=== PATIENT | female | born 1970 | race Caucasian/White ===

== ENCOUNTER 2020-02-16 14:26 | Outpatient (REF) | payer BC, SELFPAY ==
--- NOTE | 2020-02-16 | MM_ITS ---
EXAMINATION: MM SCREENING DIGITAL BREAST TOMOSYNTHESIS, BILATERAL CLINICAL INFORMATION: Screening. Asymptomatic. Family history breast cancer maternal aunt. Personal history reduction mammoplasty 1985. The lifetime risk of breast cancer based on the Tyrer-Cuzick Model is 11%. COMPARISON: Mammography: 02/08/2019, 01/25/2018, 07/06/2014 TECHNIQUE: Digital breast tomosynthesis is performed in both the craniocaudal and mediolateral oblique views along with computer-aided detection (CAD). Synthesized 2D images are generated from the tomosynthesis. FINDINGS: There are scattered areas of fibroglandular density (ACR BI-RADS breast composition Category b). There is minor scarring and numerous benign round and rim calcifications predominantly anterior breast consistent with the prior reduction mammoplasty. Intramammary node mid 9:00 right breast is stable from prior exams. There is no developing density or interval mass or architectural abnormality. No significant changes. MM/MM tomosynthesis screening BI IMPRESSION: No significant changes from prior studies. ASSESSMENT: BI-RADS 2: Benign RECOMMENDATION: Routine annual mammography screening. This patient's information was entered into a reminder system with a target due date for their next mammogram.
== END 2020-02-16 14:27 | disposition home or self-care (01) ==
LOC: HO.MAMMO 14:26
PROVIDERS: PCP Internal Medicine; Visit Provider Internal Medicine
DX: Z12.31 Encounter for screening mammogram for malignant neoplasm of breast (principal)
CPT/HCPCS: 77063; 77067

== ENCOUNTER → 2020-06-10 14:41 | Outpatient (BNVA) | payer BC, SELFPAY | PROVIDERS: PCP Internal Medicine; Visit Provider Internal Medicine Cardiovascular Disease | DX: I49.1 Atrial premature depolarization (principal); E78.5 Hyperlipidemia, unspecified | CPT/HCPCS: 93005 ==

== ENCOUNTER 2020-07-13 15:09 | Emergency (ER) | payer BC, SELFPAY ==
[2020-07-13 15:27] VITALS: PULSE 69; RESP 16; TEMP 36.7; O2SAT 98; BMI 28.1
[2020-07-13 16:50] LABS: MANUAL DIFF FLAG NO
[2020-07-13 16:53] LABS: Basophils Absolute Auto 0.1 X10*3/uL (0.0-0.2); Basophils Percent Auto 0.6 % (0-2); Eosinophils Absolute Auto 0.5 X10*3/uL (0.0-0.4); Eosinophils Percent Auto 4.1 % (0-4); Imm Gran Abs Auto 0.05 X10*3/uL (0.00-0.03); Imm Gran Pct Auto 0.4 % (0.0-0.4); Lymphocytes Absolute Auto 3.2 X10*3/uL (1.2-4.9); Lymphocytes Percent Auto 24.8 % (20-40); Mean Corpuscular HGB Conc 34.1 g/dl (31.0-35.0); Mean Corpuscular Hemoglobin 29.1 pg (27.0-33.0); Mean Corpuscular Volume 85.4 fL (80-98); Mean Platelet Volume 10.7 fL (9.4-12.3); Monocytes Absolute Auto 0.9 X10*3/uL (0.1-1.2); Monocytes Percent Auto 7.1 % (2-11); Platelet Count 298 X10*3/uL (160-400); Red Blood Count 5.15 X10*6/uL (4.20-5.50); Red Cell Distribution Width 12.3 % (11.0-16.0); White Blood Count 12.7 X10*3/uL (4.8-10.8)
[2020-07-13 16:59] LABS: Glucose Urine UA 500 MG/DL (NEG); Leukocyte Esterase Urine NEG (NEG); Nitrite Urine NEG (NEG); Specific Gravity - Urine <= 1.005 (1.005-1.025); Urine Blood NEG (NEG); Urine Ketones NEG (NEG); Urine Protein NEG (NEG-TRACE)
[2020-07-13 17:00] LABS: Appearance Urine CLEAR; Color Urine COLORLESS
[2020-07-13 17:25] LABS: Alanine Aminotransferase 13 U/L (0-31); Albumin Level 4.7 g/dL (3.5-5.0); Alkaline Phosphatase 91 U/L (39-117); Anion Gap 16 (12-20); Aspartate Amino Transferase 12 U/L (5-31); Bilirubin Total 0.3 mg/dL (0.0-1.0); Blood Urea Nitrogen 10 mg/dL (9-16); Calcium 9.6 mg/dL (8.4-10.2); Carbon Dioxide 20 mmol/L (22-29); Chloride 105 mmol/L (96-108); Creatinine Clr Calc Pharmacy 64.3; Estimated Glomerular Filt Rate > 60; Glucose Random 236 mg/dL (60-115); Potassium 4.2 mmol/L (3.3-5.1); Sodium 137 mmol/L (135-145); Total Protein 7.6 g/dL (6.5-8.0)
--- NOTE | 2020-07-13 21:06 | ECG_ITS ---
Test Reason : CHEST PAIN Blood Pressure : / mmHG Vent. Rate : 058 BPM Atrial Rate : 058 BPM P-R Int : 100 ms QRS Dur : 080 ms QT Int : 396 ms P-R-T Axes : 000 050 048 degrees QTc Int : 388 ms Sinus bradycardia with short CO Low voltage QRS Borderline ECG When compared to the previous EKG of No significant changes seen Referred By: Priyanka Fermin Electronically Signed By:TANYA REYNA MD
--- NOTE | 2020-07-13 21:07 | ED_ITS ---
HPI - General Adult General Chief complaint: General Medical Stated complaint: Black stools Time Seen by Provider: 07/13/20 18:40 History of Present Illness HPI narrative: 49-year-old with a history of diabetes, history of smoking presents today with having pain in the epigastric area the pain is dull in nature. Patient took some Motrin for the pain. It subsequently made the pain worse. Patient today took some Pepto-Bismol. Noted her stools to be black. Came to the emergency department. She denies any chest pain any shortness of breath. No fever no chills. No coughing or congestion or upper respiratory symptoms. Patient is from home. No history of GI bleeds in the past. Patient is not on any blood thinners. Related Data Home Medications Medication Instructions Recorded Confirmed atorvastatin 40 mg tablet 40 mg PO DAILY 06/10/20 06/10/20 empagliflozin 25 mg tablet 25 mg PO DAILY 06/10/20 06/10/20 metformin 500 mg tablet mg PO 06/10/20 06/10/20 metoprolol succinate 50 mg 50 mg PO DAILY 06/10/20 06/10/20 tablet,extended release 24 hr Previous Rx's Medication Instructions Recorded omeprazole magnesium [Prilosec OTC] 20 mg PO DAILY #14 tab 07/13/20 Allergies Allergy/AdvReac Type Severity Reaction Status Date / Time egg [EGG] Allergy Unknown GI UPSET Unverified 12/25/19 15:43 tramadol [Ultram] AdvReac Unknown GI upset Verified 07/18/19 00:00 ivory soap Allergy Unknown rash Uncoded 06/10/19 00:00 Review of Systems Review of Systems: Constitutional: No Weight loss, No Fever, No Chills, No Night Sweats, No Fatigue, No Malaise ENT/Mouth: No Hearing loss, No Ear Pain, No Nasal Congestion, No Sinus Pain, No Hoarseness, No sore throat, No Rhinorrhea, No Swallowing Difficulty Eyes: No Eye Pain, No Swelling, No Redness, No Foreign Body, No Discharge, No Vision Changes Cardiovascular: No Chest Pain, No SOB, No Dyspnea on Exertion, No Orthopnea, No Edema, No Palpitations Respiratory: No Cough, No Sputum, No Wheezing, No Smoke Exposure, No Dyspnea Gastrointestinal: No Nausea, No Vomiting, No Diarrhea, No Constipation, No abdominal Pain, No Hematochezia, No Melena Genitourinary: no irregular bleeding, No Dysuria, No Urinary Frequency, No Hematuria, No Urinary Incontinence, No Urgency, No Flank Pain, No Urinary Flow Changes, No Hesitancy Musculoskeletal: No joint pain, No Myalgias, No Joint Swelling Skin: No Skin Lesions, No rash Neuro: No Weakness, No Numbness, No Paresthesias, No Loss of Consciousness, No Dizziness, No Headache Psych: No Anxiety/Panic, No Depression, No SI/HI/AH/VH, No Social Issues, Heme/Lymph: No Bruising, No Bleeding,No Lymphadenopathy Endocrine: No Polyuria, No Polydipsia, No Temperature Intolerance [facility] Past Medical History Medical History Hyperlipidemia Premature atrial contractions Supraventricular tachycardia Surgical History History of cardiac radiofrequency ablation (RFA) Hx of cardiac cath Family History Family History Father Diabetes CVD (cardiovascular disease) Mother CVD (cardiovascular disease) Cancer Social History Social History Smoking Status: Current every day smoker Advance Directives: No Advance Directives Information Provided: Yes Physical Exam Vital Signs: Vital Signs: Last Vital Signs Temp 98.8 F 07/13/20 21:33 Pulse 68 07/13/20 21:33 Resp 16 07/13/20 21:33 BP 153/77 H 07/13/20 21:33 Pulse Ox 99 07/13/20 21:33 Body Mass Index 28.1 Appearance: Alert. Oriented X3. No acute distress. Eyes: Pupils equal, round and reactive to light. ENT: Pharynx normal. Neck: Normal inspection. Neck supple. No lymph nodes noted. No crepitus CVS: Normal heart rate and rhythm. Pulses normal. Normal S1 and S2 Respiratory: No respiratory distress. Breath sounds normal. No Wheezing. No rales Abdomen: Soft and nontender. No rigidity. No distention. good BS x4 Skin: Skin warm and dry. Normal skin color. Normal skin turgor. Extremities: No lower extremity edema. Neurovascular intact to all extremities. No Lacerations. No Rash Neuro: Oriented X 3. No motor deficit. No sensory deficit. Moving all extermities. No slurred speech Medical Decision Making MDM Narrative Medical decision making narrative: Patient's hemoglobin is 15. Well appearing. The black stools likely related to patient's use of Pepto-Bismol as patient's stool came back heme negative. Will discharge patient home. Will start patient on PPI for epigastric pain. Incidentally patient while in the emergency department was able to tolerate a bag of Doritos with any difficulties. Her repeat exam is soft nontender. In stable condition with discharge home Lab Data Result diagrams: 07/13/20 16:39 07/13/20 16:39 Labs: Lab Results 07/13/20 07/13/20 07/13/20 Range/Units 16:39 16:39 16:39 WBC 12.7 H (4.8-10.8) X10*3/uL RBC 5.15 (4.20-5.50) X10*6/uL Hgb 15.0 (12.0-16.0) g/dl Hct 44.0 (37-47) % MCV 85.4 (80-98) fL MCH 29.1 (27.0-33.0) pg MCHC 34.1 (31.0-35.0) g/dl RDW 12.3 (11.0-16.0) % Plt Count 298 (160-400) X10*3/uL MPV 10.7 (9.4-12.3) fL Immature Gran % (Auto) 0.4 (0.0-0.4) % Neut % (Auto) 63.0 (45-73) % Lymph % (Auto) 24.8 (20-40) % [place] % (Auto) 7.1 (2-11) % Eos % (Auto) 4.1 H (0-4) % Baso % (Auto) 0.6 (0-2) % Lymph # (Auto) 3.2 (1.2-4.9) X10*3/uL [place] # (Auto) 0.9 (0.1-1.2) X10*3/uL Eos # (Auto) 0.5 H (0.0-0.4) X10*3/uL Baso # (Auto) 0.1 (0.0-0.2) X10*3/uL Abs Immat Gran (auto) 0.05 H (0.00-0.03) X10*3/uL Absolute Neuts (auto) 8.0 (2.0-8.3) X10*3/uL Absolute Nucleated RBC 0.000 (0.0-0.012) X10*3/uL Nucleated RBC % (auto) 0.0 (0.0-0.2) /100WBC Hold Blue Top SEE NOTE Sodium 137 (135-145) mmol/L Potassium 4.2 (3.3-5.1) mmol/L Chloride 105 (96-108) mmol/L Carbon Dioxide 20 L (22-29) mmol/L Anion Gap 16 (12-20) BUN 10 (9-16) mg/dL Creatinine 0.91 (0.5-1.4) mg/dL Estim Creat Clear Calc 64.3 Estimated GFR > 60 Random Glucose 236 H (60-115) mg/dL Calcium 9.6 (8.4-10.2) mg/dL Total Bilirubin 0.3 (0.0-1.0) mg/dL AST 12 (5-31) U/L ALT 13 (0-31) U/L Alkaline Phosphatase 91 (39-117) U/L Total Protein 7.6 (6.5-8.0) g/dL Albumin 4.7 (3.5-5.0) g/dL Urine Color Urine Appearance Urine pH (5.0-8.0) Ur Specific [place] (1.005-1.025) Urine Protein (NEG-TRACE) MG/DL Urine Glucose (UA) (NEG) MG/DL Urine Ketones (NEG) MG/DL Urine Blood (NEG) Urine Nitrite (NEG) Ur Leukocyte Esterase (NEG) Stool Occult Blood (NEGATIVE) 07/13/20 07/13/20 Range/Units 16:50 21:02 WBC (4.8-10.8) X10*3/uL RBC (4.20-5.50) X10*6/uL Hgb (12.0-16.0) g/dl Hct (37-47) % MCV (80-98) fL MCH (27.0-33.0) pg MCHC (31.0-35.0) g/dl RDW (11.0-16.0) % Plt Count (160-400) X10*3/uL MPV (9.4-12.3) fL Immature Gran % (Auto) (0.0-0.4) % Neut % (Auto) (45-73) % Lymph % (Auto) (20-40) % [place] % (Auto) (2-11) % Eos % (Auto) (0-4) % Baso % (Auto) (0-2) % Lymph # (Auto) (1.2-4.9) X10*3/uL [place] # (Auto) (0.1-1.2) X10*3/uL Eos # (Auto) (0.0-0.4) X10*3/uL Baso # (Auto) (0.0-0.2) X10*3/uL Abs Immat Gran (auto) (0.00-0.03) X10*3/uL Absolute Neuts (auto) (2.0-8.3) X10*3/uL Absolute Nucleated RBC (0.0-0.012) X10*3/uL Nucleated RBC % (auto) (0.0-0.2) /100WBC Hold Blue Top Sodium (135-145) mmol/L Potassium (3.3-5.1) mmol/L Chloride (96-108) mmol/L Carbon Dioxide (22-29) mmol/L Anion Gap (12-20) BUN (9-16) mg/dL Creatinine (0.5-1.4) mg/dL Estim Creat Clear Calc Estimated GFR Random Glucose (60-115) mg/dL Calcium (8.4-10.2) mg/dL Total Bilirubin (0.0-1.0) mg/dL AST (5-31) U/L ALT (0-31) U/L Alkaline Phosphatase (39-117) U/L Total Protein (6.5-8.0) g/dL Albumin (3.5-5.0) g/dL Urine Color COLORLESS Urine Appearance CLEAR Urine pH 6.0 (5.0-8.0) Ur Specific [place] <= 1.005 (1.005-1.025) Urine Protein NEG (NEG-TRACE) MG/DL Urine Glucose (UA) 500 H (NEG) MG/DL Urine Ketones NEG (NEG) MG/DL Urine Blood NEG (NEG) Urine Nitrite NEG (NEG) Ur Leukocyte Esterase NEG (NEG) Stool Occult Blood NEGATIVE (NEGATIVE) ECG Data Interpretation: Sinus heart rate is 60 NE QRS QT within normal limits is no acute ST segment elevation Discharge Plan Discharge Clinical Impression: Gastritis Patient Disposition: Home, Self-Care Instructions: Gastritis (ED) Prescriptions: New omeprazole magnesium [Prilosec OTC] 20 mg tablet,delayed release (DR/EC) 20 mg PO DAILY Qty: 14 RF: 0 No Action metformin 500 mg tablet PO RF: 0 metoprolol succinate 50 mg tablet extended release 24 hr 50 mg PO DAILY RF: 0 Jardiance 25 mg tablet 25 mg PO DAILY RF: 0 atorvastatin 40 mg tablet 40 mg PO DAILY RF: 0 Referrals: Hailey Bermeo MD [Primary Care Provider] - 2 days
[2020-07-13 21:08] LABS: OBS Int Ctl Valid YES; OBS1 NEGATIVE (NEGATIVE)
[2020-07-13 21:33] VITALS: BP 153/77; PULSE 68; RESP 16; TEMP 37.1; O2SAT 99
[2020-07-13] MEDS: Magnesium Hydrox/Alum Hydrox 30 ML ORAL.SUSP PO (21:36)
[2020-07-13 21:51] LABS: Lipase 16 U/L (8-78)
== END 2020-07-13 22:15 | disposition home or self-care (01) ==
PROVIDERS: Emergency Provider Emergency Medicine Emergency Medical Services; PCP Internal Medicine
DX: K29.70 Gastritis, unspecified, without bleeding (principal); R10.13 Epigastric pain; E11.9 Type 2 diabetes mellitus without complications; E78.5 Hyperlipidemia, unspecified; F17.200 Nicotine dependence, unspecified, uncomplicated; Z79.84 Long term (current) use of oral hypoglycemic drugs; Z79.02 Long term (current) use of antithrombotics/antiplatelets
CPT/HCPCS: 36415; 80053; 81003; 82272; 83690; 85025; 93005; 99283; 99284

== ENCOUNTER 2020-07-19 07:23 | Outpatient (REF) | payer BC, SELFPAY ==
[2020-07-19 11:16] LABS: MANUAL DIFF FLAG NO
[2020-07-19 11:45] LABS: Basophils Absolute Auto 0.1 X10*3/uL (0.0-0.2); Basophils Percent Auto 0.5 % (0-2); Eosinophils Absolute Auto 0.4 X10*3/uL (0.0-0.4); Eosinophils Percent Auto 3.8 % (0-4); Hematocrit 44.5 % (37-47); Hemoglobin 15.1 g/dl (12.0-16.0); Imm Gran Abs Auto 0.04 X10*3/uL (0.00-0.03); Imm Gran Pct Auto 0.4 % (0.0-0.4); Lymphocytes Absolute Auto 2.9 X10*3/uL (1.2-4.9); Lymphocytes Percent Auto 26.3 % (20-40); Mean Corpuscular HGB Conc 33.9 g/dl (31.0-35.0); Mean Corpuscular Hemoglobin 28.9 pg (27.0-33.0); Mean Corpuscular Volume 85.2 fL (80-98); Mean Platelet Volume 11.8 fL (9.4-12.3); Monocytes Absolute Auto 0.7 X10*3/uL (0.1-1.2); Monocytes Percent Auto 6.3 % (2-11); Neutrophils Absolute Auto 6.9 X10*3/uL (2.0-8.3); Neutrophils Percent Auto 62.7 % (45-73); Platelet Count 293 X10*3/uL (160-400); Red Blood Count 5.22 X10*6/uL (4.20-5.50); Red Cell Distribution Width 12.3 % (11.0-16.0)
== END 2020-07-19 07:24 | disposition home or self-care (01) ==
LOC: HO.HMGCLDS 07:23
PROVIDERS: PCP Nurse Practitioner Family; Visit Provider Nurse Practitioner Family
DX: K29.70 Gastritis, unspecified, without bleeding (principal)
CPT/HCPCS: 36415; 85025

== ENCOUNTER 2020-08-04 09:27 | Outpatient (REF) | payer BC, SELFPAY ==
--- NOTE | ~2020-08-04 | US_ITS ---
EXAMINATION: US ABDOMEN COMPLETE CLINICAL INFORMATION: Left upper quadrant pain. COMPARISON: None TECHNIQUE: Real-time imaging of the abdominal viscera. FINDINGS: PANCREAS: The head and body the pancreas are normal. The tail is not well visualized due to bowel gas. ABDOMINAL AORTA: The proximal and distal abdominal aorta are normal in caliber. The midabdominal aorta is not well visualized due to bowel gas. INFERIOR VENA CAVA: Visualized portions are normal. LIVER: Normal. The liver is normal in size. The liver contour is normal. Parenchymal echogenicity is normal. No focal hepatic lesion. There is no intrahepatic biliary duct dilatation seen. GALLBLADDER: Surgically absent. COMMON BILE DUCT: Normal in caliber measuring 0.5 cm in diameter. RIGHT KIDNEY: Normal. No hydronephrosis. No renal calculi or focal parenchymal lesions. The kidney measures 11.5 cm in maximum dimension. LEFT KIDNEY: There is mild fullness of the left renal pelvis versus extrarenal pelvis. No hydronephrosis is seen. No renal calculi or focal parenchymal lesions. The kidney measures 12.4 cm in maximum dimension. SPLEEN: Normal. The spleen measures 11.2 cm in maximum dimension. FREE FLUID: None. US/US abdomen complete IMPRESSION: Limited visualization of the tail the pancreas and mid abdominal aorta. Mild fullness of the left renal pelvis versus extrarenal pelvis.
== END 2020-08-04 09:28 | disposition home or self-care (01) ==
LOC: HO.HMGCX 09:27
PROVIDERS: PCP Nurse Practitioner Family; Visit Provider Nurse Practitioner Family
DX: R10.12 Left upper quadrant pain (principal)
CPT/HCPCS: 76700

== ENCOUNTER → 2020-08-27 14:31 | Outpatient (BNVA) | payer BC, SELFPAY | PROVIDERS: PCP Nurse Practitioner Family; Visit Provider Nurse Practitioner ==

== ENCOUNTER 2020-10-01 10:24 | Day surgery (SDC) | payer BC, SELFPAY ==
[2020-09-27 09:17] VITALS: BMI 29.0
[2020-10-01 10:55] VITALS: BP 153/78; PULSE 84; RESP 18; TEMP 37
[2020-10-01 11:06] LABS: Glucose, Whole Blood 161 mg/dL (60-115)
--- NOTE | 2020-10-01 11:28 | P.CONAN_ITS ---
[facility] Active Problems Active Problems: All Active Problems (Updated 09/27/20 @ 09:19 by Gayatri alvarado) Family history of stomach cancer (Acute) Gastritis (Acute) LUQ abdominal pain (Acute) Colon cancer screening (Acute) Dysphagia (Acute) FHx: esophageal cancer (Acute) Hyperlipidemia (Acute) Premature atrial contractions (Acute) Past Medical History Medical History Diabetes Hyperlipidemia Premature atrial contractions Supraventricular tachycardia Family History Family History Father Diabetes CVD (cardiovascular disease) Mother CVD (cardiovascular disease) Cancer Surgical History Surgical History History of cardiac radiofrequency ablation (RFA) Hx of cardiac cath Social History Social History Patient Tobacco Use Status: Current everyday Tobacco user Tobacco use type: Cigarette Use of substances other than those prescribed or required for medical reasons: No Are you DNR?: No Advance Directives: No Advance Directives Information Provided: Yes Meds Allergies Allergy/AdvReac Type Severity Reaction Status Date / Time dulaglutide [From Trulicity] AdvReac Intermediate abdominal Verified 10/01/20 10:53 pain egg [EGG] AdvReac Intermediate GI UPSET Verified 10/01/20 10:53 tramadol [Ultram] AdvReac Intermediate GI upset Verified 10/01/20 10:53 ivory soap Allergy Intermediate rash Uncoded 09/27/20 09:21 Home Medications Medication Instructions Recorded Confirmed Last Taken Type empagliflozin 25 mg tablet 25 mg PO DAILY 06/10/20 09/27/20 Unknown History metoprolol succinate 50 mg 50 mg PO DAILY 06/10/20 09/27/20 10/01/20 09:45 History tablet,extended release 24 hr metformin 500 mg tablet 1,000 mg PO BID tab 07/15/20 09/27/20 Unknown History Exam Exam Date and Time: October 01, 2020 1128 Height,Weight and Vital Signs: Height 5 ft 1 in Weight 69.853 kg Last Vital Signs Temp 98.6 F 10/01/20 10:55 Pulse 84 10/01/20 10:55 Resp 18 10/01/20 10:55 BP 153/78 H 10/01/20 10:55 Pertinent Lab Results Pertinent Lab Results: Laboratory Tests 10/01/20 11:02 POC Glucose 161 H Airway Mallampati Class: II TM Dist: >3cm Neck ROM: Full Denture: Upper and Lower
[2020-10-01] MEDS: Lactated Ringers 1,000 ML 100 ML IVCONT (11:37)
--- NOTE | 2020-10-01 11:45 | W.PM.OPN ---
Operative Note Operative Note Date of Service: 10/01/20 Narrative: Pre-op diagnosis: Colon cancer screening, early satiety, dysphagia to pills Post-op diagnosis: other (Gastritis, dysphagia, diverticulosis) Procedure: FLEXIBLE TRANSORAL UPPER GASTROINTESTINAL ENDOSCOPY WITH BIOPSIES AND COLONOSCOPY TILL CECUM WITH RANDOM COLON BIOPSIES UPPER ENDOSCOPY Consent: Indications for the procedure and potential complications of bleeding, perforation, reaction to medications and missed diagnosis were discussed with the patient and informed consent was obtained. Instrument: Olympus GIF H 190 mid size upper endoscope Monitoring: Vital signs and clinical assessment, continuous EKG monitoring, Pulse oximetry, Carbon Dioxide monitoring and blood pressure monitoring were done throughout the procedure. Procedure: The patient was placed in the left lateral decubitis position and pre-procedure medications were administered and a bite block was placed. The endoscope was inserted into the mouth and advanced under direct vision to the third part of duodenum. A careful inspection was made as the upper endoscope was withdrawn including a retroflexed examination of the proximal stomach; Findings and interventions are described below. Findings: Larynx: Normal Esophagus: Tortuous esophagus with increased tertiary contractions without stricture or ring - biopsies were obtained from proximal esophagus to check for EOE. GE junction at 35 cms.. No esophagitis or Olivia's. Stomach: Moderate diffuse gastric erythema with superficial erosions with small amounts of heme in the antrum. Biopsies were obtained from the gastric body and antrum. Grade 2 flap valve on retroflexed examination of the cardia. Duodenum: Normal bulb and descending duodenum. Biopsies were obtained from 3rd part of the duodenum to check for celiac sprue. Intervention: Biopsies as noted above COLONOSCOPY PROCEDURE NOTE Consent: Indications for the procedure and potential complications of bleeding, perforation, reaction to medications and missed diagnosis were discussed with the patient and informed consent was obtained. Instrument: Olympus PCF H 190 L variable stiffness pediatric colonoscope Monitoring: Vital signs and clinical assessment, intermittent blood pressure monitoring, continuous EKG monitoring, Pulse oximetry and Carbon Dioxide monitoring were done throughout the procedure. Colon withdrawl time was 17 minutes. Procedure: The patient was placed in the left lateral decubitis position and pre-procedure medications were administered. After a digital rectal examination of the ano-rectum, the video colonoscope was inserted into the rectum and advanced through the colon to the cecum. The colonoscope was slowly withdrawn in a retrograde panoramic fashion and the colon mucosa was carefully examined including a retroflexed view of the rectum. Findings and interventions are described below. Procedure Difficulty: : Without difficulty Findings: Terminal Ileum: Not evaluated Cecum: Normal Ascending Colon: Moderate diverticulosis Transverse Colon: Moderate diverticulosis Descending Colon: Moderate diverticulosis Sigmoid Colon: Moderate diverticulosis Rectum: Normal Ano-rectum: Hypertrophied anal papillae Colon preparation: Good Impression and Post Procedure Diagnosis: Endoscopy Findings: ESOPHAGUS: Tortuous esophagus with increased tertiary contractions without stricture or ring - biopsies were obtained from proximal esophagus to check for EOE. GE junction at 35 cms.. No esophagitis or Olivia's. STOMACH: Moderate diffuse gastric erythema with superficial erosions with small amounts of heme in the antrum. Biopsies were obtained from the gastric body and antrum. Grade 2 flap valve on retroflexed examination of the cardia. DUODENUM: Normal - biopsied to check for celiac sprue Colonoscopy Findings: No polyps were detected. Random biopsies were obtained from the colon to check for microscopic colitis Moderate diverticulosis seen in the entire colon Plan: Await pathology results Patient has an appointment on 10/14/20 in the GI Clinic with Elinor Cr NP. Repeat Colonoscopy in 10 years if colon biopsies are normal. Above findings were reviewed with the patient and Gastritis and diverticulosis handouts were given in the discharge area Surgeon: Amauri Danielle MD Anesthesia: MAC (Elodia Walker CRNA) Was an Electric Stove Mechanic used for this Procedure?: Yes Electric Stove Mechanic: Hoa Alcaraz Estimated blood loss (mL): 0 Pathology: other ( A- SMALL BOWEL BIOPSIES B- GASTRIC ANTRUM - R/O H.PYLORI C- GASTRIC BODY D- PROXIMAL ESOPHAGUS R/O EOE E- RANDOM COLON BIOPSIES) Condition: stable Disposition: PACU
--- NOTE | 2020-10-01 11:45 | MHC.SHP ---
Pre-Procedural Eval Section A Date of Service: 10/01/20 The patient is an INPATIENT: No The History & Physical has been completed within 30 days and I have reviewed it.: No Section B Chief Complaint: Screening, Dysphagia Details of Present Illness: Colon cancer screening, dysphagia, early satiety Relevant Family History (Specify if Yes): Yes Present Medications: see Short Stay Collaborative assessment Medical History: Significant History (Hyperlipidemia Premature atrial contractions Supraventricular tachycardia) History of Previous Operations: Relevant previous surgery/procedure and date(s) (History of cardiac radiofrequency ablation (RFA) Hx of cardiac cath) Allergies: Allergies Allergy/AdvReac Type Severity Reaction Status Date / Time dulaglutide [From Trulicity] AdvReac Intermediate abdominal Verified 10/01/20 10:53 pain egg [EGG] AdvReac Intermediate GI UPSET Verified 10/01/20 10:53 tramadol [Ultram] AdvReac Intermediate GI upset Verified 10/01/20 10:53 ivory soap Allergy Intermediate rash Uncoded 09/27/20 09:21 Review of Systems Sugical H&P ROS: Negative: Constitution, Cardiovascular and Respiratory and Yes, Specify: Gastrointestinal (dysphagia, early satiety) Exam Surgical H&P Exam: Normal: Heart, Normal: Lungs, Normal: Extremities and Normal: Abdomen Plan Diagnosis/Plan: Change (Add EGD for evaluation of early satiety and dysphagia) I have reviewed the history and physical and performed a pertinent physical examination on my patient. No changes have occurred unless specified.
[2020-10-01 13:21] VITALS: BP 114/68; PULSE 72; RESP 14; TEMP 36.8; O2SAT 98
[2020-10-01 13:35] VITALS: BP 129/72; PULSE 72; RESP 16; TEMP 36.8; O2SAT 100
== END 2020-10-01 14:25 | disposition home or self-care (01) ==
PROVIDERS: PCP Nurse Practitioner Family; Visit Provider Internal Medicine Gastroenterology
PROC: (CPT 45380; principal; 2020-10-01 12:10)
DX: Z12.11 Encounter for screening for malignant neoplasm of colon (principal); K57.30 Diverticulosis of large intestine without perforation or abscess without bleeding; K62.89 Other specified diseases of anus and rectum; R13.10 Dysphagia, unspecified; Z80.0 Family history of malignant neoplasm of digestive organs; K22.8 Other specified diseases of esophagus; K29.51 Unspecified chronic gastritis with bleeding; I49.1 Atrial premature depolarization; I47.1 Supraventricular tachycardia; E78.5 Hyperlipidemia, unspecified; E11.9 Type 2 diabetes mellitus without complications; Z79.84 Long term (current) use of oral hypoglycemic drugs; Z79.899 Other long term (current) drug therapy; Z88.8 Allergy status to other drugs, medicaments and biological substances; F17.210 Nicotine dependence, cigarettes, uncomplicated
CPT/HCPCS: 45380; 43239; 82947; 88305; 88342; J3010

== ENCOUNTER → 2020-10-14 14:42 | Outpatient (BNVA) | payer BC, SELFPAY | PROVIDERS: PCP Nurse Practitioner Family; Visit Provider Nurse Practitioner ==

== ENCOUNTER 2021-02-16 08:32 | Outpatient (REF) | payer BC, SELFPAY ==
--- NOTE | ~2021-02-16 | XR_ITS ---
EXAMINATION: XR CERVICAL SPINE CLINICAL INFORMATION: Cervical disc disorder COMPARISON: None TECHNIQUE: 5 views of the cervical spine including bilateral oblique views were obtained. FINDINGS: Bone alignment is normal. No fracture or dislocation is seen. There is degenerative spondylosis and degenerative disc disease at C5-C6 and C6-C7. There is mild right-sided neural foraminal narrowing from bony osteophyte at C3-C4 C5-C6 and C6-C7. Evaluation for left-sided neural foraminal narrowing is limited due to patient positioning. Prevertebral soft tissues are normal. There is soft tissue ossification or calcification in between the C5 and C6 spinous processes likely related to old trauma. XR/XR cervical spine 4V IMPRESSION: Degenerative changes.
== END 2021-02-16 08:33 | disposition home or self-care (01) ==
LOC: HO.HMGCX 08:32
PROVIDERS: PCP Nurse Practitioner Family; Visit Provider Nurse Practitioner Family
DX: M50.90 Cervical disc disorder, unspecified, unspecified cervical region (principal)
CPT/HCPCS: 72050

== ENCOUNTER 2021-04-27 08:00 | Outpatient (RCR) | payer BC, SELFPAY ==
--- NOTE | 2021-03-15 07:45 | MHC.PT.EP ---
[facility] [place] Office [place] Office [place] Office [address] [phone] F: [phone] F: [phone] F: [phone] F: [phone] Physical Therapy Plan of Care Date of Evaluation: Date of Surgery: Diagnosis: This is a 50 yo female presenting to skilled PT with a script for cervical neck pain Assessment: This is a 50 yo female presenting to skilled PT with a script for cervical neck pain . Patient is RHD. 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 Pain is located at the lateral aspect of the shoulder, can radiate into the upper arm as well as the forearm. Pain is described as achy (reports some numbness in finger tips on occasion). Pain increases when sleeping and reaching. She has had PT before for a similar issue but on the opposite shoulder (PT was helpful). She has been using arthritis lotion, light stretching in the shower (heat has been helpful) and massage. Assessment reveals pain that ranges up to a 6/10. She demos decreased B shoulder and cervical ROM, decreased shoulder and scapular strength, impaired GHJ joint mobility, TTP throughout bicep belly bicep tendon, decreased posture with holding LUE adducted and IR as well as gross functional decline with sleeping and reaching. She is a good candidate for skilled PT 2x/wk for 5wks. Frequency and Duration: The patient will be seen 2x/wk for 5wks Short Term Goals: I in HEP Normalize AROM without pain Demo proper scap stab Custodial Goals: Centralize pain in 4 wks Demo at least 4+/5 MMT Sleep through the night without waking from pain Improve outcome measure by at least 5 points Treatment Plan: Modalities to reduce pain, spasms and effusion. Manual therapy to restore motion and function. Therapeutic exercise to improve strength and flexibility. Neuromuscular re-education for posture and balance. Therapeutic activities to return to functional activities of daily living. Electronically signed by: Terri Randolph PT Please sign and return to therapist. Thank you for your referral.
--- NOTE | 2021-04-28 10:47 | MHC.PT.DC ---
[facility] [place] Office [place] Office [place] Office [address] Dimitrios Emmanuel [address] [phone] F: [phone] F: [phone] F: [phone] F: [phone] Physical Therapy Discharge Report Diagnosis: This is a 50 yo female presenting to skilled PT with a script for cervical neck pain Date of Surgery: Date of Evaluation: 03/14/21 Date of Discharge: 04/27/21 Treatments to Date: 7 Cancellations to Date: 0 No Shows to Date: 0 Discharge Status: Achieved Goals Improved Function Independent with HEP Discharge Summary: Pt reporting pain/symptoms have improved. She demos normal cervical and shoulder AROM. She also demos good shoulder strength and awareness of posture. Pt reported muscle fatigue and burning in shoulder with strengthening exercises but this seemed more exercise induced and she did not c/o of pain. She has an HEP to continue on own, has met her personal and PT goals and is ready for DC at this time. Electronically signed by: Terri Randolph, PT Please sign and return to therapist. Thank you for your referral.
== END 2021-04-28 10:48 | disposition home or self-care (01) ==
LOC: HO.PTCHIC 08:00
PROVIDERS: PCP Nurse Practitioner Family; Visit Provider Nurse Practitioner Family
DX: M50.90 Cervical disc disorder, unspecified, unspecified cervical region (principal)
CPT/HCPCS: 97110; 97140; 97162

== ENCOUNTER → 2021-06-14 12:40 | Outpatient (BNVA) | payer BC, SELFPAY | PROVIDERS: PCP Nurse Practitioner Family; Referring Provider Nurse Practitioner Family; Visit Provider Nurse Practitioner Family | DX: I49.1 Atrial premature depolarization (principal); I47.1 Supraventricular tachycardia; E78.5 Hyperlipidemia, unspecified; R00.2 Palpitations | CPT/HCPCS: 93005 ==

== ENCOUNTER 2021-09-06 12:57 | Outpatient (REF) | payer BC, SELFPAY ==
[2021-09-07 09:22] LABS: BV Int Neg Control Negative (Negative); BV Int Pos Control Positive (Positive)
[2021-09-09 06:25] LABS: HPV mRNA E6/E7 rflx Not Detected (Not Detected)
== END 2021-09-06 12:58 | disposition home or self-care (01) ==
LOC: HO.LAB 12:57
PROVIDERS: PCP Nurse Practitioner Family; Visit Provider Advanced Practice Midwife
DX: Z01.411 Encounter for gynecological examination (general) (routine) with abnormal findings (principal); Z11.51 Encounter for screening for human papillomavirus (HPV); N76.0 Acute vaginitis; T74.21XD Adult sexual abuse, confirmed, subsequent encounter
CPT/HCPCS: 87480; 87510; 87624; 87660; 88142

== ENCOUNTER 2021-10-06 09:53 | Outpatient (REF) | payer BC, SELFPAY | END 2021-10-06 09:54 | disposition home or self-care (01) | LOC: HO.LAB 09:53 | PROVIDERS: PCP Nurse Practitioner Family; Visit Provider Obstetrics & Gynecology | DX: N90.89 Other specified noninflammatory disorders of vulva and perineum (principal) | CPT/HCPCS: 56605; 88305; 88342; 88360 ==

== ENCOUNTER → 2022-06-14 14:23 | Outpatient (BNVA) | payer OTHER, SELFPAY | PROVIDERS: PCP Nurse Practitioner Family; Visit Provider Internal Medicine Cardiovascular Disease | DX: I49.1 Atrial premature depolarization (principal); E78.5 Hyperlipidemia, unspecified | CPT/HCPCS: 93005 ==

== ENCOUNTER 2022-11-02 06:06 | Outpatient (REF) | payer OTHER, SELFPAY ==
[2022-11-02 12:19] LABS: Estimated Average Glucose 206 mg/dL; Hemoglobin A1c % 8.8 %
[2022-11-02 13:23] LABS: Alanine Aminotransferase 13 U/L (0-31); Albumin Level 4.2 g/dL (3.5-5.0); Alkaline Phosphatase 100 U/L (39-117); Anion Gap 18 (12-20); Aspartate Amino Transferase 13 U/L (5-31); Bilirubin Total 0.5 mg/dL (0.0-1.0); Blood Urea Nitrogen 11 mg/dL (9-16); Calcium 9.9 mg/dL (8.4-10.2); Carbon Dioxide 21 mmol/L (22-29); Chloride 105 mmol/L (96-108); Cholesterol 193 mg/dL; Estimated Glomerular Filt Rate > 60; Glucose Random 105 mg/dL (60-115); HDL Cholesterol 43 mg/dL; LDL Cholesterol Calculated 112 mg/dl; Potassium 4.4 mmol/L (3.3-5.1); Sodium 140 mmol/L (135-145); Total Protein 7.2 g/dL (6.5-8.0); Triglycerides 192 mg/dL
[2022-11-02 13:30] LABS: Creatinine Urine 80.84 mg/dL; Microalbum/Creatinine Ratio Ur 18.5 ug/mg cr
== END 2022-11-02 06:07 | disposition home or self-care (01) ==
LOC: HO.HMGCLDS 06:06
PROVIDERS: PCP Nurse Practitioner Family; Visit Provider Internal Medicine Endocrinology, Diabetes & Metabolism
DX: E11.9 Type 2 diabetes mellitus without complications (principal)
CPT/HCPCS: 36415; 80053; 80061; 82043; 83036

== ENCOUNTER 2023-03-15 06:47 | Outpatient (REF) | payer OTHER, SELFPAY ==
[2023-03-15 11:46] LABS: Estimated Average Glucose 203 mg/dL; Hemoglobin A1c % 8.7 % (<6.0)
[2023-03-15 12:18] LABS: Alanine Aminotransferase 14 U/L (0-31); Albumin Level 4.2 g/dL (3.5-5.0); Alkaline Phosphatase 98 U/L (39-117); Anion Gap 12 (12-20); Aspartate Amino Transferase 17 U/L (5-31); Bilirubin Total 0.4 mg/dL (0.0-1.0); Blood Urea Nitrogen 12 mg/dL (9-16); Carbon Dioxide 27 mmol/L (22-29); Chloride 104 mmol/L (96-108); Cholesterol 269 mg/dL (<200); Estimated Glomerular Filt Rate > 60; Glucose Random 106 mg/dL (60-115); HDL Cholesterol 45 mg/dL (>40); LDL Cholesterol Calculated 158 mg/dL (<100); Potassium 5.4 mmol/L (3.3-5.1); Sodium 138 mmol/L (135-145); Total Protein 7.3 g/dL (6.5-8.0); Triglycerides 334 mg/dL (<150)
[2023-03-15 12:22] LABS: Creatinine Urine 92.67 mg/dL; Microalbum/Creatinine Ratio Ur 15.1 ug/mg cr (<30)
== END 2023-03-15 06:48 | disposition home or self-care (01) ==
LOC: HO.HMGCLDS 06:47
PROVIDERS: PCP Nurse Practitioner Family; Visit Provider Internal Medicine Endocrinology, Diabetes & Metabolism
DX: E11.65 Type 2 diabetes mellitus with hyperglycemia (principal)
CPT/HCPCS: 36415; 80053; 80061; 82043; 82570; 83036

== ENCOUNTER 2023-05-29 06:16 | Outpatient (REF) | payer OTHER, SELFPAY ==
[2023-05-29 11:43] LABS: Estimated Average Glucose 154 mg/dL
[2023-05-29 11:57] LABS: Alanine Aminotransferase 21 U/L (0-31); Albumin Level 4.1 g/dL (3.5-5.0); Alkaline Phosphatase 79 U/L (39-117); Anion Gap 12 (12-20); Aspartate Amino Transferase 16 U/L (5-31); Bilirubin Total 0.3 mg/dL (0.0-1.0); Blood Urea Nitrogen 11 mg/dL (9-16); Calcium 9.5 mg/dL (8.4-10.2); Carbon Dioxide 25 mmol/L (22-29); Chloride 110 mmol/L (96-108); Cholesterol 134 mg/dL (<200); Estimated Glomerular Filt Rate > 60; Glucose Random 75 mg/dL (60-115); HDL Cholesterol 44 mg/dL (>40); LDL Cholesterol Calculated 68 mg/dL (<100); Potassium 4.8 mmol/L (3.3-5.1); Sodium 142 mmol/L (135-145); Total Protein 6.7 g/dL (6.5-8.0); Triglycerides 110 mg/dL (<150)
[2023-05-29 12:26] LABS: Creatinine Urine 139.26 mg/dL; Microalbum/Creatinine Ratio Ur 9.3 ug/mg cr (<30)
== END 2023-05-29 06:17 | disposition home or self-care (01) ==
LOC: HO.HMGCLDS 06:16
PROVIDERS: PCP Nurse Practitioner Family; Visit Provider Internal Medicine Endocrinology, Diabetes & Metabolism
DX: E11.65 Type 2 diabetes mellitus with hyperglycemia (principal)
CPT/HCPCS: 36415; 80053; 80061; 82043; 82570; 83036

== ENCOUNTER 2023-05-30 10:53 | Outpatient (AMB) | payer OTHER, SELFPAY ==
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
[2023-05-30 10:55] VITALS: BP 122/82; BMI 29.9
== END 2023-05-30 11:35 | disposition home or self-care (01) ==
PROVIDERS: PCP Nurse Practitioner Family; Visit Provider Advanced Practice Midwife
DX: Z01.419 Encounter for gynecological examination (general) (routine) without abnormal findings (principal)
CPT/HCPCS: 99396

== ENCOUNTER → 2023-05-30 10:53 | Outpatient (BNVA) | payer OTHER, SELFPAY | PROVIDERS: PCP Nurse Practitioner Family; Visit Provider Advanced Practice Midwife ==

== ENCOUNTER → 2023-05-30 11:45 | Outpatient (BNV) | payer OTHER, SELFPAY | PROVIDERS: PCP Nurse Practitioner Family; Visit Provider Radiology Diagnostic Radiology | DX: Z12.31 Encounter for screening mammogram for malignant neoplasm of breast (principal) | CPT/HCPCS: 77063; 77067 ==

== ENCOUNTER 2023-05-30 11:47 | Outpatient (REF) | payer OTHER, SELFPAY ==
--- NOTE | ~2023-05-30 | MM_ITS ---
EXAMINATION: MM SCREENING DIGITAL BREAST TOMOSYNTHESIS, BILATERAL CLINICAL INFORMATION: Screening. Asymptomatic. Remote history of breast reduction surgery. COMPARISON: Mammography: 02/16/2020, 02/08/2019, 01/25/2018, 07/06/2014 TECHNIQUE: Digital breast tomosynthesis is performed in both the craniocaudal and mediolateral oblique views along with computer-aided detection (CAD). Synthesized 2D images are generated from the tomosynthesis. FINDINGS: There are scattered areas of fibroglandular density (ACR BI-RADS breast composition Category b). There is a similar lobular focal asymmetry in the lateral mid right breast, unchanged from numerous prior exams and benign. There are numerous bilateral skin calcifications. There is unchanged post reduction mammoplasty scarring. There are no suspicious masses, suspicious grouped calcifications, or areas of architectural distortion in either breast. The parenchymal pattern is stable from prior exams. No skin or axillary abnormalities. MM/MM tomosynthesis screening BI IMPRESSION: No mammographic evidence of malignancy. Stable benign findings. ASSESSMENT: BI-RADS BI-RADS 2 - Benign Findings RECOMMENDATION: Routine annual mammography screening. 1 year F/U This examination should not preclude the clinical evaluation of a suspicious palpable abnormality. This patient's information was entered into a reminder system with a target due date for their next mammogram.
== END 2023-05-30 11:48 | disposition home or self-care (01) ==
LOC: HO.MAMMO 11:47
PROVIDERS: PCP Nurse Practitioner Family; Visit Provider Nurse Practitioner Family
DX: Z12.31 Encounter for screening mammogram for malignant neoplasm of breast (principal)
CPT/HCPCS: 77063; 77067

== ENCOUNTER 2023-06-26 08:31 | Outpatient (AMB) | payer OTHER, SELFPAY ==
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
[2023-06-26 08:37] VITALS: BP 120/80; PULSE 72; BMI 29.2
== END 2023-06-26 08:53 | disposition home or self-care (01) ==
PROVIDERS: Visit Provider Internal Medicine Cardiovascular Disease
DX: I47.10 Supraventricular tachycardia, unspecified (principal)
CPT/HCPCS: 93010; 99213

== ENCOUNTER → 2023-06-26 08:31 | Outpatient (BNVA) | payer OTHER, SELFPAY | PROVIDERS: Visit Provider Internal Medicine Cardiovascular Disease | DX: I47.10 Supraventricular tachycardia, unspecified (principal); Z79.899 Other long term (current) drug therapy | CPT/HCPCS: 93005 ==

== ENCOUNTER 2023-08-14 08:25 | Outpatient (AMB) | payer OTHER, SELFPAY ==
[2023-08-14 09:13] VITALS: BP 130/90; PULSE 70; TEMP 36.6; O2SAT 99; BMI 29.9
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
== END 2023-08-14 09:56 | disposition home or self-care (01) ==
PROVIDERS: PCP Nurse Practitioner Family; Visit Provider Nurse Practitioner Primary Care
DX: S46.911A Strain of unspecified muscle, fascia and tendon at shoulder and upper arm level, right arm, initial encounter (principal)
CPT/HCPCS: 99213

== ENCOUNTER 2023-08-14 09:34 | Outpatient (REF) | payer OTHER, SELFPAY ==
--- NOTE | ~2023-08-14 | XR_ITS ---
EXAMINATION: XR SHOULDER, RIGHT CLINICAL INFORMATION: Right shoulder pain COMPARISON: None available. TECHNIQUE: AP external rotation, Grashey, scapular Y, and axillary views of the right shoulder. FINDINGS: There is dystrophic calcification seen along the superior lateral margin of the humeral head possibly related to a tendon insertion. No fracture, dislocation or destructive process. There is moderate narrowing in the right AC joint with prominent spurring. XR/XR shoulder RT min 2V IMPRESSION: Degenerative change. No acute findings.
== END 2023-08-14 09:35 | disposition home or self-care (01) ==
LOC: HO.HMGCX 09:34
PROVIDERS: PCP Nurse Practitioner Family; Visit Provider Nurse Practitioner Primary Care
DX: M25.511 Pain in right shoulder (principal)
CPT/HCPCS: 73030

== ENCOUNTER 2023-08-30 12:11 | Outpatient (AMB) | payer OTHER, SELFPAY ==
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
[2023-08-30 12:37] VITALS: BP 118/72; PULSE 62; O2SAT 98; BMI 29.5
== END 2023-08-30 13:10 | disposition home or self-care (01) ==
PROVIDERS: PCP Nurse Practitioner Family; Visit Provider Nurse Practitioner Family
DX: Z00.01 Encounter for general adult medical examination with abnormal findings (principal); E11.9 Type 2 diabetes mellitus without complications; M25.511 Pain in right shoulder; F17.210 Nicotine dependence, cigarettes, uncomplicated; L98.9 Disorder of the skin and subcutaneous tissue, unspecified
CPT/HCPCS: 99213; 99396

== ENCOUNTER 2023-12-12 08:20 | Outpatient (AMB) | payer OTHER, SELFPAY ==
[2023-12-12 08:47] VITALS: BP 130/80; PULSE 79; TEMP 36.8; O2SAT 98; BMI 29.3
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
== END 2023-12-12 10:06 | disposition home or self-care (01) ==
PROVIDERS: PCP Nurse Practitioner Family; Visit Provider Physician Assistant
DX: M79.604 Pain in right leg (principal)
CPT/HCPCS: 99214

== ENCOUNTER 2023-12-12 09:25 | Outpatient (REF) | payer OTHER, SELFPAY ==
--- NOTE | ~2023-12-12 | US_ITS ---
EXAMINATION: US TRIPLEX LOWER EXTREMITY, RIGHT CLINICAL INFORMATION: Right lower extremity pain COMPARISON: None available. TECHNIQUE: Color-flow triplex imaging with spectral analysis and compression Doppler were performed on the right lower extremity. FINDINGS: Respiratory variation, normal compression and augmented flow are noted throughout the right lower extremity. The visualized common femoral vein, superficial femoral vein, profunda femoral vein, popliteal vein and midcalf peroneal and posterior tibial venous segments show no evidence of deep venous thrombosis. There is no Garcia's cyst. US/US venous duplex LE RT IMPRESSION: No evidence of deep venous thrombosis involving the right lower extremity. Electronically signed by: Israel Novoa MD 12/12/2023 11:27 AM EDT
== END 2023-12-12 09:26 | disposition home or self-care (01) ==
LOC: HO.HMGCX 09:25
PROVIDERS: PCP Nurse Practitioner Family; Visit Provider Physician Assistant
DX: M79.604 Pain in right leg (principal); R22.41 Localized swelling, mass and lump, right lower limb
CPT/HCPCS: 93971

== ENCOUNTER 2024-01-11 09:24 | Outpatient (AMB) | payer OTHER, SELFPAY ==
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
== END 2024-01-11 10:10 | disposition home or self-care (01) ==
PROVIDERS: PCP Nurse Practitioner Family; Visit Provider Physician Assistant Medical
DX: F17.210 Nicotine dependence, cigarettes, uncomplicated (principal)
CPT/HCPCS: G0296

== ENCOUNTER 2024-01-11 09:55 | Outpatient (REF) | payer OTHER, SELFPAY ==
--- NOTE | ~2024-01-11 | CT_ITS ---
EXAMINATION: CT LOW-DOSE SCREENING CHEST WITHOUT CONTRAST CLINICAL INFORMATION: Nicotine dependence, cigarettes, uncomplicated. The patient is a current smoker with a 36 pack-year history of smoking. COMPARISON: Chest x-ray 06/19/2013. TECHNIQUE: Multidetector volumetric CT imaging of the chest is performed on a Siemens SOMATOM Definition scanner without contrast using low dose technique. Additional 2D coronal and sagittal reformatted images and axial 3D maximum intensity projection (MIP) images are generated on the CT workstation. This CT examination was performed using dose optimization techniques as appropriate, variously including the following: *Automated exposure control *Adjustment of mA and/or kV according to patient size (this includes techniques or standardized protocols for targeted exams where dose is matched to indication/reason for exam; i.e. extremities or head) *Use of iterative reconstruction technique TOTAL EXAM DLP: 62 mGy-cm. CTDIvol: 1.88 mGy. FINDINGS: PULMONARY NODULES: Some small pulmonary nodules are seen all under 4 mm in size (see saved calhoun images). No suspicious lung masses. LUNGS: Lungs bilaterally symmetrically expanded. There is mild emphysema and bronchial thickening present without bronchiectasis. Area of linear scarring seen at the left apex. No effusion or pneumothorax. Central airways patent. MEDIASTINUM: No mediastinal, hilar or axillary adenopathy or free fluid collection. CORONARY ARTERY CALCIFICATION: None visualized on this study. THYROID GLAND: Unremarkable to the extent seen. CARDIOVASCULAR STRUCTURES: Aortic and heart size normal. No pericardial effusion. CHEST WALL/AXILLA: Unremarkable. UPPER ABDOMEN: Included portions of the solid organs in the upper abdomen unremarkable on noncontrast imaging. Status post cholecystectomy. OSSEOUS STRUCTURES: No suspicious focal findings. CT/CT lung screening IMPRESSION: No findings seen suspicious for malignancy. ASSESSMENT: 1. Lung-RADS Category 2: Benign appearance or behavior of nodules. N/A 2. Lung-RADS Category S: Negative. There are no clinically significant or potentially clinically significant findings not related to the lungs requiring urgent additional evaluation. RECOMMENDATION: Continued routine annual low-dose CT lung screening in 1 year is recommended. An order for CT CHEST LOW DOSE CANCER SCREENING ([id number]) can be placed. Electronically signed by: Cedrick Inman MD 02/27/2024 01:41 PM [facility]
== END 2024-01-11 09:56 | disposition home or self-care (01) ==
LOC: HO.CT 09:55
PROVIDERS: PCP Nurse Practitioner Family; Visit Provider Physician Assistant Medical
DX: Z12.2 Encounter for screening for malignant neoplasm of respiratory organs (principal); F17.210 Nicotine dependence, cigarettes, uncomplicated
CPT/HCPCS: 71271; G0296

== ENCOUNTER 2024-01-31 11:19 | Outpatient (AMB) | payer OTHER, SELFPAY ==
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
[2024-01-31 11:29] VITALS: BMI 29.3
== END 2024-01-31 11:54 | disposition home or self-care (01) ==
PROVIDERS: PCP Nurse Practitioner Family; Visit Provider Physician Assistant Surgical
DX: I83.11 Varicose veins of right lower extremity with inflammation (principal)
CPT/HCPCS: 99204

== ENCOUNTER → 2024-01-31 11:19 | Outpatient (BNVA) | payer OTHER, SELFPAY | PROVIDERS: PCP Nurse Practitioner Family; Visit Provider Physician Assistant Surgical ==

== ENCOUNTER 2024-02-05 08:00 | Outpatient (RCR) | payer OTHER, SELFPAY ==
--- NOTE | 2023-12-31 09:10 | MHC.PT.EP ---
[facility] [place] Office [place] Office [place] Office [address] Dimitrios Emmanuel [address] [phone] F: [phone] F: [phone] F: [phone] F: [phone] Physical Therapy Plan of Care Date of Evaluation: 12/31/23 Date of Surgery: Diagnosis: This is a 53 yo female presenting to skilled PT with a script for R shoulder pain. Assessment: This is a 53 yo female presenting to skilled PT with a script for R shoulder pain. 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 Pain is located at the lateral aspect of the shoulder. Pain is described as dull and sharp at times. Pain increases when applying pressure and pushing, reaching overhead, OH ADL's, sleeping on the R. She has had PT before for a similar issue in the past once for the R and another for the L (PT was helpful at this facility). Pain is slightly improved with heat and gentle massage (she has a coworker doing this for her already). She is hoping for an MRI, no referral to ortho yet. Assessment reveals pain that ranges from up to a 10/10 at the worst. Patient demos decreased R shoulder and cervical ROM, strength of B shoulder's, TTP at GHJ joint line, UT and impaired posture with forward head and rounded shoulders. Based on functional limitations, impaired QOL and pain tolerance patient is a good candidate for skilled PT 2x/wk for 4wks. Frequency and Duration: The patient will be seen 2x/wk for 4wks Short Term Goals: (In 2 weeks) Demo I with HEP Improve shoulder AROM by at least 10 degs Demo proper scapular recruitment with appropriate shoulder strengthening exercises Health Editor Goals: (in 4 wks) Improve shoulder nonpainful AROM to almost near equal B Demo at least 1 grade improvement in MMT for shoulder Improve SPADI by at least 10 points Improve overall functional QOL by at least 50% Treatment Plan: Modalities to reduce pain, spasms and effusion. Manual therapy to restore motion and function. Therapeutic exercise to improve strength and flexibility. Neuromuscular re-education for posture and balance. Therapeutic activities to return to functional activities of daily living. Electronically signed by: Terri Randolph PT Please sign and return to therapist. Thank you for your referral.
--- NOTE | 2024-03-05 06:48 | MHC.PT.DC ---
[facility] [place] [facility] [place] [facility] [place] [facility] [address] [phone] F: [phone] F: [phone] F: [phone] F: [phone] Physical Therapy Discharge Report Diagnosis: This is a 53 yo female presenting to skilled PT with a script for R shoulder pain. Date of Surgery: Date of Evaluation: 12/31/23 Date of Discharge: 03/05/24 Treatments to Date: 8 Cancellations to Date: 0 No Shows to Date: 0 Discharge Status: Improved Function Independent with HEP Patient Elected to Stop Recommend MD Follow-up Discharge Summary: Patient has improved her ROM and strength as well as pain but still had lingering symptoms, limited function and baseline pain. It was recommended she continue her HEP and follow up with her referring provider for a ? image if provider agrees. Her chart was closed after 30 days of not being at the facility. Electronically signed by: Terri Randolph PT Please sign and return to therapist. Thank you for your referral.
== END 2024-03-05 06:48 | disposition home or self-care (01) ==
LOC: HO.PTCHIC 08:00
PROVIDERS: PCP Nurse Practitioner Family; Visit Provider Nurse Practitioner Family
DX: M25.511 Pain in right shoulder (principal)
CPT/HCPCS: 97110; 97140; 97162

== ENCOUNTER 2024-02-11 08:32 | Outpatient (REF) | payer OTHER, SELFPAY ==
--- NOTE | ~2024-02-11 | US_ITS ---
EXAMINATION: US LOWER EXTREMITY VENOUS (REFLUX EXAM), BILATERAL CLINICAL INDICATION: Chronic venous insufficiency with history of right great saphenous vein ablation COMPARISON: None. TECHNIQUE: Color flow triplex imaging and compression Doppler was performed to evaluate both the deep and the superficial systems bilaterally. To evaluate the superficial system, the examination was performed in the upright position. Color-flow Doppler ultrasound and compression ultrasound were utilized. In addition, maneuvers were utilized to demonstrate reflux. FINDINGS: 1. DEEP VENOUS ULTRASOUND OF THE RIGHT LOWER EXTREMITY: Common Femoral Vein: Compressible, normal respiratory variation and augmented flow. Femoral Vein: Compressible, normal color flow and augmentation. Popliteal Vein: Compressible, normal augmentation. Deep Reflux: There is no evidence of reflux in the deep system in either the common femoral vein, superficial femoral or the popliteal vein. There is no evidence of a Garcia's cyst. 2. SUPERFICIAL ULTRASOUND WITH DOPPLER OF RIGHT LOWER EXTREMITY: GREAT SAPHENOUS VEIN: Saphenofemoral Junction: 0.4 cm; Reflux: 0 ms Proximal Thigh: 0.3 cm; Reflux: 0 ms Mid Thigh: 0.2 cm; Reflux: 0 ms Above Knee: 0.1 cm; occluded At Knee: 0.2 cm; occluded Below Knee: Not visualized Mid Calf: 0.1 cm; Reflux: 0 ms Ankle: 0.2 cm; Reflux: 0 ms DUPLICATED MEDIAL GREAT SAPHENOUS VEIN: Diameter: None imaged Reflux: NA DUPLICATED LATERAL GREAT SAPHENOUS VEIN: Diameter: 0.3 cm Reflux: None SMALL SAPHENOUS VEIN: Saphenopopliteal Junction: 0.2 cm; Reflux: 0 ms Proximal: 0.2 cm; Reflux: 0 ms Distal: 0.1 cm; Reflux: 0 ms VEIN OF GIACOMINI: Size: NA Reflux: NA PERFORATORS: Location: None imaged Size: NA Reflux: NA VARICOSITIES: Location: Small varicosity in the distal thigh arising from the residual great saphenous vein and extending to the mid calf Size: 0.2 cm Reflux: None 3. DEEP VENOUS ULTRASOUND OF THE LEFT LOWER EXTREMITY: Common Femoral Vein: Compressible, normal respiratory variation and augmented flow. Femoral Vein: Compressible, normal color flow and augmentation. Popliteal Vein: Compressible, normal augmentation. Deep Reflux: There is no evidence of reflux in the deep system in either the common femoral vein, superficial femoral or the popliteal vein. There is no evidence of a Garcia's cyst. 4. SUPERFICIAL ULTRASOUND WITH DOPPLER OF LEFT LOWER EXTREMITY: GREAT SAPHENOUS VEIN: Saphenofemoral Junction: 0.6 cm; Reflux: 0 ms Proximal Thigh: 0.6 cm; Reflux: 0 ms Mid Thigh: 0.3 cm; Reflux: 0 ms Above Knee: 0.4 cm; Reflux: 0 ms At Knee: 0.3 cm; Reflux: 0 ms Below Knee: 0.3 cm; Reflux: 0 ms Mid Calf: 0.2 cm; Reflux: 0 ms Ankle: 0.2 cm; Reflux: 0 ms DUPLICATED MEDIAL GREAT SAPHENOUS VEIN: Diameter: None imaged Reflux: NA DUPLICATED LATERAL GREAT SAPHENOUS VEIN: Diameter: 0.2 cm Reflux: None SMALL SAPHENOUS VEIN: Saphenopopliteal Junction: 0.2 cm; Reflux: 0 ms Proximal: 0.1 cm; Reflux: 0 ms Distal: 0.2 cm; Reflux: 0 ms VEIN OF GIACOMINI: Size: NA Reflux: NA PERFORATORS: Location: None imaged Size: NA Reflux: NA VARICOSITIES: Location: None significant Size: NA Reflux: NA US/US venous duplex LE BI IMPRESSION: 1. Right: Status post ablation of the right great saphenous vein with no significant residual venous insufficiency. Small varicosity arising from the residual great saphenous vein in the distal thigh extending to the mid calf. 2. Left: No significant venous insufficiency or reflux. Electronically signed by: Israel Novoa MD 02/15/2024 04:24 PM EST
== END 2024-02-11 08:33 | disposition home or self-care (01) ==
LOC: HO.US 08:32
PROVIDERS: PCP Nurse Practitioner Family; Visit Provider Physician Assistant Surgical
DX: I83.11 Varicose veins of right lower extremity with inflammation (principal)
CPT/HCPCS: 93970

== ENCOUNTER 2024-02-19 13:13 | Outpatient (AMB) | payer OTHER, SELFPAY ==
[2024-02-19 13:15] VITALS: BP 144/86; BMI 29.3
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
== END 2024-02-19 13:51 | disposition home or self-care (01) ==
PROVIDERS: PCP Nurse Practitioner Family; Visit Provider Physician Assistant Surgical
DX: I83.11 Varicose veins of right lower extremity with inflammation (principal)
CPT/HCPCS: 99214

== ENCOUNTER 2024-06-24 08:25 | Outpatient (AMB) | payer OTHER, SELFPAY ==
[2024-06-24 08:29] VITALS: BP 118/76; PULSE 70; BMI 27.9
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
--- OUTSIDE RECORDS SUMMARY | 2024-06-24 08:37 | XMS_ITS | Patient Health Record ---
Author Organization [facility] [place] Address [address] [place] [address] Care Team Providers Care Time Signal Wirer Name Role Phone Leonard Alfred Primary Care Provider Sukumar Childress Unavailable [phone] Allergies Allergen (clinical drug ingredient) Drug/Non Drug Allergy documented on EMR Reaction Allergy Type Onset Date Status tramadol Ultram Unknown Drug Allergy Active dulaglutide Trulicity Unknown Drug Allergy Activ e Eggs or Egg-derived Products Unknown Drug Allergy Active Reason For Referral No Information Medications Medication SIG (Take, Route, Frequency, Duration) Notes Start Date End Date Status metFORMIN HCl 1000 MG 1 tablet with a me al Orally Once a day for 30 day(s) Active Jardiance 25 MG 1 tablet Orally Once a day Active Metoprolol Succinate ER 50 MG 1 tablet Orally Once a day Active glipiZIDE ER 2.5 MG 1 tablet with food O rally Once a day Active Atorvastatin Calcium 40 MG as directed O rally Once a day Active Immunizations Vaccine Route Administration Date Status Comme nts COVID-19 Gus & Gus/Ari Unknown 06/11/2021 Administered 1st 12/12/2020 Social History Tobacco Use: Social History Observation Description Date Details (start date - stop date) Current Smoker 04/09/2005 - NA Tobacco Use/Smoking Question Answer Notes Are you a: current smoker When did you start smoking? 04/09/2005 How many cigarettes a day do you smoke? 21-30 Alcohol Screen Question Answer Notes Did you have a drink containing alcohol in the p ast year? Yes Points 0 Interpretation Negative Tobacco use other than smoking: Question Answer Notes Are you an other tobacco user? No Problems Problem Type SNOMED Code ICD Code Onset Dates Problem Status W/U Status Risk Notes Problem Acquired hallux valgus (13292639) Hallux valgus (acquired), left foot (M20.12) Active confirmed Problem Acquired hallux valgus (02368370) Hallux valgus (acquired), right foot (M20.11) Active confirmed Problem Polyneuropathy due to type 2 diabetes mellitus (104236159) Type 2 diabetes mellitus with diabetic polyneuropathy (E11.42) Active confirmed Plan Of Treatment Pending Test Test Name Order Date X ray : Foot, left 3V 11/14/2021 X ray : Foot, right 3V 11/14/2021 [id number] SKIN LESIONS, OVER 4 11/15/19 22 Insurance Providers Payer Name Payer Address Payer Phone Subscriber Number Group Number Insured Name Patient Relationship to Insured Coverage Start Date Coverage End Date [facility] [employer] [address] [place] [address] [id number] Alice Santiago Self - patient is the insured 0 Medical (General) History Medical History History ICD Code CAD (Cholesterol) type II diabetes Heart disease (SVT) Reflux ( GERD) Sciatica Chicken pox Numbness Occsionally R Great Toe HPV covid-19 Surgical History Surgery Date(Month/Year) breast reconstruction 1987 gall bladder 2002 (SVT) Supraventricular tachycardia ablat ion 2013 R carpal tunnel surgery 2015 L carpal tunnel surgery 2017 (Endometrial) novasure ablation 08/2018 cancer valve surgery 11/01/2021
== END 2024-06-24 08:52 | disposition home or self-care (01) ==
LOC: HO.HCS 08:26
PROVIDERS: PCP Nurse Practitioner Family; Visit Provider Internal Medicine Cardiovascular Disease
DX: I49.1 Atrial premature depolarization (principal); I47.10 Supraventricular tachycardia, unspecified; E78.5 Hyperlipidemia, unspecified
CPT/HCPCS: 93010; 99214

== ENCOUNTER → 2024-06-24 08:25 | Outpatient (BNVA) | payer OTHER, SELFPAY | PROVIDERS: PCP Nurse Practitioner Family; Visit Provider Internal Medicine Cardiovascular Disease | DX: I49.1 Atrial premature depolarization (principal); E78.5 Hyperlipidemia, unspecified; I47.10 Supraventricular tachycardia, unspecified; R00.2 Palpitations | CPT/HCPCS: 93005 ==

== ENCOUNTER 2024-10-01 12:47 | Outpatient (AMB) | payer OTHER, SELFPAY ==
[2024-10-01 12:53] VITALS: BP 160/92; PULSE 71; O2SAT 99; BMI 27.7
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
[2024-10-01 13:40] VITALS: BP 128/80
--- OUTSIDE RECORDS SUMMARY | 2024-10-01 14:50 | XMS_ITS | Patient Health Record ---
[facility] Organization [facility] [place] Address [address] [place] [address] Care Team Providers Care Associate Programmer Analyst Name Role Phone Leonard Alfred Primary Care Provider Sukumar Childress Unavailable [phone] Allergies Allergen (clinical drug ingredient) Drug/Non Drug [...] Status Risk Notes Problem Acquired hallux valgus (97247207) Hallux valgus (acquired), left foot (M20.12) Active confirmed Problem Hallux valgus (acquired), right foot (M20.11) Active confirmed Problem Polyneuropathy due to type 2 diabetes mellitus (413056490) Type 2 diabetes mellitus with diabetic polyneuropathy (E11.42) Active confirmed Plan Of Treatment Pending Test Test Name Order Date X ray : Foot, left 3V 11/14/2021 X ray : Foot, right 3V 11/14/2021 [id number] SKIN LESIONS, OVER 4 11/15/19 22 Insurance Providers Payer Name Payer Address Payer Phone Subscriber Number Group Number Insured Name Patient Relationship to Insured Coverage Start Date Coverage End Date [facility] [address] [place] [address] [id number] Alice Santiago Self - patient is the [...]
== END 2024-10-01 13:42 | disposition home or self-care (01) ==
LOC: HO.HMCC 12:48
PROVIDERS: PCP Nurse Practitioner Family; Visit Provider Nurse Practitioner Family
DX: Z00.01 Encounter for general adult medical examination with abnormal findings (principal); I73.9 Peripheral vascular disease, unspecified; E11.51 Type 2 diabetes mellitus with diabetic peripheral angiopathy without gangrene

== ENCOUNTER → 2024-10-01 12:47 | Outpatient (BNVA) | payer OTHER, SELFPAY | PROVIDERS: PCP Nurse Practitioner Family; Visit Provider Nurse Practitioner Family | DX: Z00.00 Encounter for general adult medical examination without abnormal findings (principal); E11.51 Type 2 diabetes mellitus with diabetic peripheral angiopathy without gangrene | CPT/HCPCS: 96127 ==

== ENCOUNTER → 2024-11-06 10:52 | Outpatient (REF) | payer OTHER, SELFPAY ==
--- NOTE | 2024-11-06 11:00 | CA_ITS ---
Acquisition Time: 2024-11-06 11:24:25 Total Exercise Time: 00:05:41 Test Indications: CAD Medications: SEE H&P Protocol: VIJAYA Max HR: 144 BPM 87% of Pred: 164 BPM Max BP: 210/78 mmHG Max Work Load: 7.0 METS Exercises stress test with exercise 5 mins 41 secs of Vijaya Protocol, achieving 88% MPHR, with reports of SOB, no chets pain, with isolated PVCs, with hypertensive response to exercise - max BP 210/78. With downsloping ST inferiorly and in leads V3- V6, meeting criteria for ischemia. In recovery, pt's breathing returned to baseline. Echo images obtained by tech at rest and post peak exercise. Definity contrast utilized. ST segment improved gradually. Test reviewed with Dr. Horne. Referred By: Mehul Horne Electronically Signed By: Tani Lynne
--- OUTSIDE RECORDS SUMMARY | 2024-11-06 11:42 | XMS_ITS | Patient Health Record ---
Author Organization [facility] [place] Address [address] [address] Care Team Providers Care Book Retailer Name Role Phone Leonard Alfred Primary Care Provider Sukumar Childress Unavailable [phone] Allergies Allergen (clinical drug ingredient) Drug/Non Drug [...] with a me al Orally Once a day; Duration: 30 day(s) Active Jardiance 25 MG 1 [...] Status Risk Notes Problem Acquired hallux valgus (57038604) Hallux valgus (acquired), left foot (M20.12) Active confirmed Problem Acquired hallux valgus (68448410) Hallux valgus (acquired), right foot (M20.11) Active confirmed Problem Polyneuropathy due to type 2 diabetes mellitus (617743132) Type 2 diabetes mellitus with diabetic polyneuropathy (E11.42) Active confirmed Plan Of Treatment Pending Test Test Name Order Date X ray : Foot, left 3V 11/14/2021 X ray : Foot, right 3V 11/14/2021 [id number] SKIN LESIONS, OVER 4 11/15/19 22 Insurance Providers Payer Name Payer Address Payer Phone Subscriber Number Group Number Insured Name Patient Relationship to Insured Coverage Start Date Coverage End Date [facility] All Others [address] [place] [address] [id number] Alice Santiago Self - patient is the [...]
== END ==
LOC: HO.CARD 10:52
PROVIDERS: PCP Nurse Practitioner Family; Visit Provider Internal Medicine Cardiovascular Disease
DX: I25.10 Atherosclerotic heart disease of native coronary artery without angina pectoris (principal); R00.2 Palpitations
CPT/HCPCS: 93350; Q9957

== ENCOUNTER → 2024-11-06 11:00 | Outpatient (BNV) | payer OTHER, SELFPAY | PROVIDERS: PCP Nurse Practitioner Family | DX: I25.5 Ischemic cardiomyopathy (principal); R06.02 Shortness of breath; I49.3 Ventricular premature depolarization; R03.0 Elevated blood-pressure reading, without diagnosis of hypertension | CPT/HCPCS: 93016; 93018; 93350; 93352 ==

== ENCOUNTER 2024-11-18 07:34 | Outpatient (REF) | payer OTHER, SELFPAY ==
--- OUTSIDE RECORDS SUMMARY | 2024-11-18 07:36 | XMS_ITS | Patient Health Record ---
Author Organization [facility] [place] Address [address] [place] [address] Care Team Providers Care Mechanical Developer Prover Name Role Phone Leonard Alfred Primary Care Provider Sukumar Childress Unavailable [phone] Allergies Allergen (clinical drug ingredient) Drug/Non Drug [...] Status Risk Notes Problem Acquired hallux valgus (73325392) Hallux valgus (acquired), left foot (M20.12) Active confirmed Problem Acquired hallux valgus (54014026) Hallux valgus (acquired), right foot (M20.11) Active confirmed Problem Polyneuropathy due to type 2 diabetes mellitus (756671808) Type 2 diabetes mellitus with diabetic polyneuropathy (E11.42) Active confirmed Plan Of Treatment Pending Test Test Name Order Date X ray : Foot, left 3V 11/14/2021 X ray : Foot, right 3V 11/14/2021 [id number] SKIN LESIONS, OVER 4 11/15/19 22 Insurance Providers Payer Name Payer Address Payer Phone Subscriber Number Group Number Insured Name Patient Relationship to Insured Coverage Start Date Coverage End Date [facility] All Others [address] [place] [address] [id number] Alice Santiago Self - patient is the [...]
[2024-11-18 10:17] LABS: Hematocrit 41.5 % (37.0-47.0); Hemoglobin 14.0 g/dl (12.0-16.0); Mean Corpuscular HGB Conc 33.7 g/dl (31.0-35.0); Mean Corpuscular Hemoglobin 28.3 pg (27.0-33.0); Mean Corpuscular Volume 84.0 fL (80.0-98.0); NRBC Abs Auto 0.000 X10*3/uL (0.0-0.012); NRBC Pct Auto 0.0 /100WBC (0.0-0.2); Platelet Count 279 X10*3/uL (160-400); Red Blood Count 4.94 X10*6/uL (4.20-5.50); White Blood Count 11.3 X10*3/uL (4.8-10.8)
[2024-11-18 10:21] LABS: INTERNATIONAL NORM RATIO 0.9 (0.9-1.1); Prothrombin Time 10.3 SEC (10.9-12.4)
[2024-11-18 10:52] LABS: Anion Gap 15 (12-20); Blood Urea Nitrogen 10 mg/dL (9-16); Calcium 10.1 mg/dL (8.4-10.2); Carbon Dioxide 27 mmol/L (22-29); Chloride 100 mmol/L (96-108); Estimated Glomerular Filt Rate > 60; Potassium 5.0 mmol/L (3.3-5.1); Sodium 137 mmol/L (135-145)
== END 2024-11-18 07:35 | disposition home or self-care (01) ==
LOC: HO.HMGCLDS 07:34
PROVIDERS: PCP Nurse Practitioner Family
DX: R94.39 Abnormal result of other cardiovascular function study (principal)
CPT/HCPCS: 36415; 80048; 85027; 85610

== ENCOUNTER 2024-11-28 06:09 | Outpatient (REF) | payer OTHER, SELFPAY ==
[2024-11-28 10:30] LABS: Hemoglobin A1C 381.7174 umol/L; Total Hemoglobin (HGBA1C) 3553.4507 umol/L
[2024-11-28 10:50] LABS: Alanine Aminotransferase 18 U/L (0-31); Albumin Level 4.4 g/dL (3.5-5.0); Alkaline Phosphatase 90 U/L (39-117); Anion Gap 14 (12-20); Aspartate Amino Transferase 30 U/L (5-31); Blood Urea Nitrogen 12 mg/dL (9-16); Calcium 10.2 mg/dL (8.4-10.2); Carbon Dioxide 25 mmol/L (22-29); Chloride 102 mmol/L (96-108); Cholesterol 153 mg/dL (<200); Estimated Glomerular Filt Rate > 60; HDL Cholesterol 38 mg/dL (>40); Potassium 4.3 mmol/L (3.3-5.1); Sodium 137 mmol/L (135-145); Total Protein 7.2 g/dL (6.5-8.0); Triglycerides 213 mg/dL (<150)
[2024-11-28 11:12] LABS: Microalbum/Creatinine Ratio Ur 12.9 ug/mg cr (<30)
== END 2024-11-28 06:10 | disposition home or self-care (01) ==
LOC: HO.HMGCLDS 06:09
PROVIDERS: PCP Nurse Practitioner Family; Referring Provider Internal Medicine Endocrinology, Diabetes & Metabolism; Visit Provider Nurse Practitioner Family
DX: E11.9 Type 2 diabetes mellitus without complications (principal)
CPT/HCPCS: 36415; 80053; 80061; 82043; 82570; 83036; 84075

== ENCOUNTER → 2024-12-04 23:59 | Outpatient (BNV) | payer OTHER, SELFPAY | PROVIDERS: PCP Nurse Practitioner Family; Visit Provider Internal Medicine Cardiovascular Disease | DX: I20.89 Other forms of angina pectoris (principal) | CPT/HCPCS: 93458; 99152 ==

== ENCOUNTER 2024-12-09 15:16 | Outpatient (REF) | payer OTHER, SELFPAY | END 2024-12-09 15:17 | disposition home or self-care (01) | LOC: HO.MAMMO 15:16 | PROVIDERS: PCP Nurse Practitioner Family; Visit Provider Nurse Practitioner Family | DX: Z12.31 Encounter for screening mammogram for malignant neoplasm of breast (principal) | CPT/HCPCS: 77063; 77067 ==

== ENCOUNTER → 2024-12-09 15:19 | Outpatient (BNV) | payer OTHER, SELFPAY | PROVIDERS: PCP Nurse Practitioner Family; Visit Provider Internal Medicine | DX: Z12.31 Encounter for screening mammogram for malignant neoplasm of breast (principal) | CPT/HCPCS: 77063; 77067 ==

== ENCOUNTER 2024-12-12 13:32 | Outpatient (AMB) | payer OTHER, SELFPAY ==
--- OUTSIDE RECORDS SUMMARY | 2024-12-12 13:53 | XMS_ITS | Patient Health Record ---
Author Organization [facility] [place] Address [address] [place] [address] Care Team Providers Care Clinical Associate Name Role Phone Leonard Alfred Primary Care Provider Sukumar Childress Unavailable [phone] Allergies Allergen (clinical drug ingredient) Drug/Non Drug [...] Status Risk Notes Problem Acquired hallux valgus (47325215) Hallux valgus (acquired), left foot (M20.12) Active confirmed Problem Acquired hallux valgus (52196203) Hallux valgus (acquired), right foot (M20.11) Active confirmed Problem Polyneuropathy due to type 2 diabetes mellitus (878393080) Type 2 diabetes mellitus with diabetic polyneuropathy (E11.42) Active confirmed Plan Of Treatment Pending Test Test Name Order Date X ray : Foot, left 3V 11/14/2021 X ray : Foot, right 3V 11/14/2021 [id number] SKIN LESIONS, OVER 4 11/15/19 22 Insurance Providers Payer Name Payer Address Payer Phone Subscriber Number Group Number Insured Name Patient Relationship to Insured Coverage Start Date Coverage End Date [facility] [employer] Others [address] [place] [address] [id number] Alice Santiago Self - patient is the [...]
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
[2024-12-12 14:07] VITALS: BP 120/58; PULSE 64; BMI 27.1
== END 2024-12-12 14:51 | disposition home or self-care (01) ==
LOC: HO.HCS 13:32
PROVIDERS: PCP Nurse Practitioner Family; Visit Provider Nurse Practitioner Family
DX: I25.10 Atherosclerotic heart disease of native coronary artery without angina pectoris (principal); Z98.890 Other specified postprocedural states; Z51.89 Encounter for other specified aftercare; I49.1 Atrial premature depolarization; I47.10 Supraventricular tachycardia, unspecified; E78.5 Hyperlipidemia, unspecified
CPT/HCPCS: 99215; G2211

== ENCOUNTER → 2024-12-12 13:32 | Outpatient (BNVA) | payer OTHER, SELFPAY | PROVIDERS: PCP Nurse Practitioner Family; Visit Provider Nurse Practitioner Family | DX: I49.1 Atrial premature depolarization (principal); I47.10 Supraventricular tachycardia, unspecified; Z51.89 Encounter for other specified aftercare; I25.10 Atherosclerotic heart disease of native coronary artery without angina pectoris; Z72.0 Tobacco use; E78.5 Hyperlipidemia, unspecified; I25.83 Coronary atherosclerosis due to lipid rich plaque; Z79.82 Long term (current) use of aspirin; Z13.89 Encounter for screening for other disorder ==

== ENCOUNTER 2024-12-16 13:44 | Outpatient (REF) | payer OTHER, SELFPAY ==
--- NOTE | ~2024-12-16 | US_ITS ---
EXAMINATION: NONINVASIVE ASSESSMENT OF THE BILATERAL LOWER EXTREMITIES WITHOUT ARTERIAL DUPLEX, ANKLE BRACHIAL INDICES (ABIS), AND PULSE VOLUME RECORDINGS (PVRS). CLINICAL INFORMATION: I73.9. Peripheral vascular disease, unspecified. TECHNIQUE: Duplex Doppler techniques with waveform analysis and measurement of velocities in the bilateral common femoral, profunda femoris, superficial femoral, popliteal and tibial arteries were performed. The study was performed only at rest. COMPARISON: None FINDINGS: DIRECT DUPLEX DOPPLER FINDINGS: RIGHT LEG: Common femoral artery: 179 cm/s, phasicity: Biphasic. Spectral broadening. Profunda femoris artery: 123 cm/s, phasicity: Biphasic. Spectral broadening. Superficial femoral artery (proximal): 139 cm/s, phasicity: Triphasic/biphasic. Spectral broadening. Superficial femoral artery (mid): 125 cm/s, phasicity: Triphasic/biphasic. Spectral broadening. Superficial femoral artery (distal): 335 cm/s, phasicity: Triphasic. Spectral broadening. Popliteal artery: 103 cm/s, phasicity: Biphasic. Spectral broadening. Posterior tibial artery: 58 cm/s, phasicity: Biphasic. Spectral broadening. Peroneal artery: 24 cm/s, phasicity: Biphasic. Spectral broadening. Anterior tibial artery: 41 cm/s, phasicity: Biphasic. Spectral broadening. Dorsalis pedis artery: 25 cm/s, phasicity:Biphasic. Spectral broadening. LEFT LEG: Common femoral artery: 182 cm/s, phasicity: Triphasic. Spectral broadening. Profunda femoris artery: 121 cm/s, phasicity: Biphasic. Spectral broadening. Superficial femoral artery (proximal): 119 cm/s, phasicity: Biphasic. Superficial femoral artery (mid): 111 cm/s, phasicity: Biphasic. Spectral broadening. Superficial femoral artery (distal): 181 cm/s, phasicity: Biphasic. Spectral broadening. Popliteal artery: 115 cm/s, phasicity: Biphasic. Spectral broadening. Posterior tibial artery: 72 cm/s, phasicity: Biphasic. Spectral broadening. Peroneal artery: 62 cm/s, phasicity: Biphasic. Spectral broadening. Anterior tibial artery: 69 cm/s, phasicity: Biphasic. Spectral broadening. Dorsalis pedis artery: 24 cm/s, phasicity: Biphasic. Spectral broadening. US/US arterial duplex LE BI IMPRESSION: Right leg: Moderate inflow disease throughout the interrogated arteries with likely hemodynamically significant stenosis in the distal superficial femoral artery. Left leg: Moderate inflow disease throughout the interrogated arteries. Electronically signed by: Cj Webster MD 12/16/2024 03:44 PM EDT RP
--- OUTSIDE RECORDS SUMMARY | 2024-12-16 16:15 | XMS_ITS | Patient Health Record ---
[facility] Address [address] [address] Care Team Providers Care Bulb Grower Name Role Phone Leonard Alfred Primary Care Provider Sukumar Childress Unavailable [phone] Allergies Allergen (clinical drug ingredient) Drug/Non Drug [...] Status Risk Notes Problem Acquired hallux valgus (56708636) Hallux valgus (acquired), left foot (M20.12) Active confirmed Problem Acquired hallux valgus (85610521) Hallux valgus (acquired), right foot (M20.11) Active confirmed Problem Polyneuropathy due to type 2 diabetes mellitus (292417068) Type 2 diabetes mellitus with diabetic polyneuropathy (E11.42) Active confirmed Plan Of Treatment Pending Test Test Name Order Date X ray : Foot, left 3V 11/14/2021 X ray : Foot, right 3V 11/14/2021 [id number] SKIN LESIONS, OVER 4 11/15/19 22 Insurance Providers Payer Name Payer Address Payer Phone Subscriber Number Group Number Insured Name Patient Relationship to Insured Coverage Start Date Coverage End Date [facility] All Others [address] [place] [address] [id number] Alice Santiago Self - patient is the [...]
== END 2024-12-16 13:45 | disposition home or self-care (01) ==
LOC: HO.US 13:44
PROVIDERS: PCP Nurse Practitioner Family; Visit Provider Nurse Practitioner Family
DX: I73.9 Peripheral vascular disease, unspecified (principal)
CPT/HCPCS: 93925

== ENCOUNTER → 2024-12-16 13:47 | Outpatient (BNV) | payer OTHER, SELFPAY | PROVIDERS: PCP Nurse Practitioner Family; Visit Provider Radiology Diagnostic Radiology | DX: I70.203 Unspecified atherosclerosis of native arteries of extremities, bilateral legs (principal) | CPT/HCPCS: 93925 ==

== ENCOUNTER 2025-01-20 13:56 | Outpatient (AMB) | payer OTHER, SELFPAY ==
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
[2025-01-20 14:02] VITALS: BMI 27.0
--- OUTSIDE RECORDS SUMMARY | 2025-01-20 16:55 | XMS_ITS | Patient Health Record ---
Author Organization [facility] Address [address] [place] [address] Care Team Providers Care Water Use Inspector Name Role Phone Leonard Alfred Primary Care Provider Sukumar Woo Unavailable [phone] Allergies Allergen (clinical drug ingredient) Drug/Non Drug [...] Status Risk Notes Problem Acquired hallux valgus (24537811) Hallux valgus (acquired), left foot (M20.12) Active confirmed Problem Acquired hallux valgus (48308727) Hallux valgus (acquired), right foot (M20.11) Active confirmed Problem Polyneuropathy due to type 2 diabetes mellitus (234020206) Type 2 diabetes mellitus with diabetic polyneuropathy (E11.42) Active confirmed Plan Of Treatment Pending Test Test Name Order Date X ray : Foot, left 3V 11/14/2021 X ray : Foot, right 3V 11/14/2021 [id number] SKIN LESIONS, OVER 4 11/15/19 22 Insurance Providers Payer Name Payer Address Payer Phone Subscriber Number Group Number Insured Name Patient Relationship to Insured Coverage Start Date Coverage End Date [facility] All Others [address] [place] [address] [id number] Alice Santiago Self - patient is the [...]
== END 2025-01-20 14:46 | disposition home or self-care (01) ==
LOC: HO.HVS 13:57
PROVIDERS: PCP Nurse Practitioner Family; Visit Provider Surgery Vascular Surgery
DX: I73.9 Peripheral vascular disease, unspecified (principal); M79.671 Pain in right foot; M79.672 Pain in left foot
CPT/HCPCS: 99204

== ENCOUNTER 2025-01-28 07:14 | Day surgery (SDC) | payer OTHER, SELFPAY ==
--- OUTSIDE RECORDS SUMMARY | 2025-01-21 14:54 | XMS_ITS | Patient Health Record ---
Author Organization [facility] Address [address] [place] [address] Care Team Providers Care Microbiology Director Name Role Phone Leonard Alfred Primary Care Provider Sukumar Woo Unavailable [phone] Allergies Allergen (clinical drug ingredient) Drug/Non Drug [...] Status Risk Notes Problem Acquired hallux valgus (06034750) Hallux valgus (acquired), left foot (M20.12) Active confirmed Problem Acquired hallux valgus (92763210) Hallux valgus (acquired), right foot (M20.11) Active confirmed Problem Polyneuropathy due to type 2 diabetes mellitus (464746160) Type 2 diabetes mellitus with diabetic polyneuropathy (E11.42) Active confirmed Plan Of Treatment Pending Test Test Name Order Date X ray : Foot, left 3V 11/14/2021 X ray : Foot, right 3V 11/14/2021 [id number] SKIN LESIONS, OVER 4 11/15/19 22 Insurance Providers Payer Name Payer Address Payer Phone Subscriber Number Group Number Insured Name Patient Relationship to Insured Coverage Start Date Coverage End Date [facility] All Others [address] [place] [address] [phone] [id number] Alice Santiago Self - patient is the [...]
[2025-01-28] VITALS (15 sets, daily range): BP systolic 119–178; BP diastolic 55–119; PULSE 59–70; RESP 12–17; TEMP 36.6–37; O2SAT 93–100; BMI 27.0
[2025-01-28 08:10] LABS: Glucose, Whole Blood 207 mg/dL (60-115)
[2025-01-28 08:21] LABS: MANUAL DIFF FLAG NO
[2025-01-28 08:23] LABS: Hematocrit 35.1 % (37.0-47.0); Hemoglobin 12.1 g/dl (12.0-16.0); Imm Gran Abs Auto 0.03 X10*3/uL (0.00-0.03); Imm Gran Pct Auto 0.3 % (0.0-0.4); Lymphocytes Absolute Auto 2.5 X10*3/uL (1.2-4.9); Mean Corpuscular HGB Conc 34.5 g/dl (31.0-35.0); Mean Corpuscular Hemoglobin 28.1 pg (27.0-33.0); Mean Corpuscular Volume 81.4 fL (80.0-98.0); NRBC Abs Auto 0.000 X10*3/uL (0.0-0.012); NRBC Pct Auto 0.0 /100WBC (0.0-0.2); Platelet Count 282 X10*3/uL (160-400); Red Blood Count 4.31 X10*6/uL (4.20-5.50); White Blood Count 11.0 X10*3/uL (4.8-10.8)
[2025-01-28 08:37] LABS: Blood Urea Nitrogen 12 mg/dL (9-16); Creatinine Clr Calc Pharmacy 72.2; Estimated Glomerular Filt Rate > 60
--- NOTE | 2025-01-28 10:06 | W.PM.OPN ---
Operative Note Operative Note Date of Service: 01/28/25 Narrative: Angiogram report from [facility] Preoperative diagnosis: Atherosclerosis of bilateral lower extremity with activity limiting claudication Postoperative diagnosis: Same Procedure: 1. Ultrasound-guided right common femoral access 2. Aortogram with bilateral lower extremity runoff Surgeon:Sterling Chino M.D., FACS, RPVI Certified Emergency Vehicle Technician:None Anesthesia: Local with moderate conscious sedation. Total intraservice moderate sedation time was 30 minutes. I monitored the patient's level of consciousness and physiologic status continuously throughout the procedure. Specimens:none Drains:none Estimated blood loss: Less than 10 ml Radiation Dose: 209.2 mGy Implant: None Indications: 54-year-old female who presents with lower extremity pain and discomfort. On noninvasive testing there was concern of distal SFA disease. She now presents for endovascular intervention. The patient has signed the informed consent after reviewing risks, complications, benefits, and alternatives previously discussed with the patient. The patient was given the opportunity to ask any additional questions or voice any concerns. All questions were answered to the patient's satisfaction. Procedure in detail: Patient was brought to the angiography suite prior to which a time-out was called for patient identification and site verification. Bilateral groins were prepped and draped in the standard surgical fashion. Under ultrasound guidance right common femoral was punctured with micro puncture needle and wire. Subsequently a precision 5 Anguillan sheath was then placed. Bentson wire was advanced to the level of the aorta. 5 Anguillan Flush catheter was brought up and parked at the level of the renal arteries. Aortogram was then undertaken. Catheter was brought down to the level of the iliac bifurcation. Iliacs and runoff was performed through the flush catheter that was parked at the bifurcation and a power injection was performed to visualize bilateral runoff vessels. Subsequently the catheter was then brought in up and over to the left side SFA. Once we were down into the SFA we did do multiple Mag views and multiple orthogonal views around the knee and the distal vessels. No intervention was indicated. Catheter wire were removed. A 5 Anguillan CELT closure device was then placed. Adequate hemostasis was achieved. Patient tolerated the procedure well. Returned to recovery with stable vitals. Interpretation of films: 1. Ultrasound demonstrates appropriate femoral access site. Vessel was patent with minimal stenosis. Needle entry was visualized. Image of ultrasound was saved. 2. Aortogram demonstrates appropriate caliber aorta. Minimal disease. Appropriate take-off of the renals. 3. Iliac images demonstrate small in caliber but no significant disease 4. Left Leg Common femoral artery: No significant disease Profundus Femoris: No significant disease Superficial femoral artery: No significant disease Popliteal artery (p1,p2,p3): No significant disease but narrow Anterior tibial artery: No significant disease Peroneal artery: No significant disease and goes down to the ankle Posterior tibial artery: Occluded Dorsalis pedis/plantar arch: Incomplete arch 5. Right Leg Common femoral artery: No significant disease Profundus Femoris: No significant disease Superficial femoral artery: No significant disease Popliteal artery (p1,p2,p3): No significant disease but narrow Anterior tibial artery: No significant disease Peroneal artery: No significant disease Posterior tibial artery: No significant disease Dorsalis pedis/plantar arch: Not visualized and can only visualize the proximal portion of the calf. Conclusion: 1. Successful diagnostic angiogram arterial flow appears to be within normal limits. Patient does have a history of spinal stenosis and diabetes. It may be more neuropathic in nature. 2. Anticoagulation status: No change This note is constructed using voice recognition software. While every effort has been made to ensure accuracy, legal research analyst errors may have been included. Thank you for allowing me to participate in the care of your patient. Yours sincerely, Sterling Chino MD, FACS, R.P.V.I.
== END 2025-01-28 12:18 | disposition home or self-care (01) ==
PROVIDERS: PCP Nurse Practitioner Family; Visit Provider Surgery Vascular Surgery
DX: E11.51 Type 2 diabetes mellitus with diabetic peripheral angiopathy without gangrene (principal); I70.213 Atherosclerosis of native arteries of extremities with intermittent claudication, bilateral legs; M25.562 Pain in left knee; R25.2 Cramp and spasm; R20.0 Anesthesia of skin; M79.672 Pain in left foot; M79.671 Pain in right foot; R26.2 Difficulty in walking, not elsewhere classified; M48.00 Spinal stenosis, site unspecified; I47.10 Supraventricular tachycardia, unspecified; E78.5 Hyperlipidemia, unspecified; Z80.0 Family history of malignant neoplasm of digestive organs; Z79.84 Long term (current) use of oral hypoglycemic drugs; Z88.8 Allergy status to other drugs, medicaments and biological substances; Z88.5 Allergy status to narcotic agent; Z98.890 Other specified postprocedural states; F17.210 Nicotine dependence, cigarettes, uncomplicated
CPT/HCPCS: 36247; 36415; 75630; 76937; 82565; 82947; 84520; 85025; 99152; 99153; C1760; C1769; C1887; C1894; J1644; J2003; J2250; J3010; Q9967

== ENCOUNTER → 2025-01-28 07:14 | Outpatient (BNV) | payer OTHER, SELFPAY | PROVIDERS: PCP Nurse Practitioner Family; Visit Provider Surgery Vascular Surgery | DX: I70.213 Atherosclerosis of native arteries of extremities with intermittent claudication, bilateral legs (principal) | CPT/HCPCS: 36247; 75625; 75716; 76937; 99152 ==

== ENCOUNTER 2025-02-03 08:57 | Outpatient (REF) | payer OTHER, SELFPAY ==
--- NOTE | ~2025-02-03 | XR_ITS ---
Exam: XR FOOT 3 OR MORE VIEWS BILATERAL, bilateral foot x-rays TECHNIQUE: AP, OBL and lateral views lower extremity, bilateral feet INDICATION: M20.11 - Hallux valgus (acquired), right foot COMPARISON: None available. FINDINGS: RIGHT FOOT: Intermetatarsal angle: Angle between the first and second metatarsal measured 8 degrees. (wnl <10 degrees). Metatarsophalangeal angle: Angle between the first metatarsal and proximal phalanx measured 17 degrees. (wnl <15 degrees). Interphalangeal angle: Angle between the proximal and distal phalanx measured 18 degrees. (wnl <10 degrees). Sesamoid position: Station 1 There is a small enthesophyte Achilles attachment on calcaneus. LEFT FOOT: Intermetatarsal angle: Angle between the first and second metatarsal measured 10 degrees. (wnl <10 degrees). Metatarsophalangeal angle: Angle between the first metatarsal and proximal phalanx measured 18 degrees. (wnl <15 degrees). Interphalangeal angle: Angle between the proximal and distal phalanx measured 15 degrees. (wnl <10 degrees). Sesamoid position: Station 1 There is a small enthesophyte Achilles attachment on calcaneus. XR/XR Foot Amilcar 3V IMPRESSION: Right foot: Hallux valgus deformity Left foot: Hallux valgus deformity Station Criterion 0 medial sesamoid completely medial to mid-axial line of the first metatarsal 1 medial sesamoid less than 50% overlapping the midline 2 medial sesamoid greater than 50% overlapping the midline 3 medial sesamoid completely lateral to the midline [Foot Ankle. Dec-Jan 1984;5(2):92-103. Hallux valgus assessment: report of research committee of [employer] [employer]] Electronically signed by: Nikko Cho MD 02/03/2025 10:31 AM EDT
== END 2025-02-03 08:58 | disposition home or self-care (01) ==
LOC: HO.XRAY 08:57
PROVIDERS: PCP Nurse Practitioner Family; Visit Provider Student in an Organized Health Care Education/Training Program
DX: M20.11 Hallux valgus (acquired), right foot (principal); M20.12 Hallux valgus (acquired), left foot; E11.42 Type 2 diabetes mellitus with diabetic polyneuropathy; E11.51 Type 2 diabetes mellitus with diabetic peripheral angiopathy without gangrene; L60.3 Nail dystrophy; B35.1 Tinea unguium; L60.2 Onychogryphosis; Z79.84 Long term (current) use of oral hypoglycemic drugs
CPT/HCPCS: 11721; 73630; 87101; 87220; 88304; 88311; 88312

== ENCOUNTER 2025-02-03 08:57 | Outpatient (AMB) | payer OTHER, SELFPAY ==
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
[2025-02-03 09:06] VITALS: BMI 26.9
--- OUTSIDE RECORDS SUMMARY | 2025-02-03 09:53 | XMS_ITS | Patient Health Record ---
[facility] [address] [place] [address] Care Team Providers Care White Sugar Syrup Operator Name Role Phone Leonard Alfred Primary Care Provider Sukumar Woo Unavailable [phone] Allergies Allergen (clinical drug ingredient) Drug/Non Drug [...] Status Risk Notes Problem Acquired hallux valgus (01170345) Hallux valgus (acquired), left foot (M20.12) Active confirmed Problem Acquired hallux valgus (16371319) Hallux valgus (acquired), right foot (M20.11) Active confirmed Problem Polyneuropathy due to type 2 diabetes mellitus (893493970) Type 2 diabetes mellitus with diabetic polyneuropathy (E11.42) Active confirmed Plan Of Treatment Pending Test Test Name Order Date X ray : Foot, left 3V 11/14/2021 X ray : Foot, right 3V 11/14/2021 [id number] SKIN LESIONS, OVER 4 11/15/19 22 Insurance Providers Payer Name Payer Address Payer Phone Subscriber Number Group Number Insured Name Patient Relationship to Insured Coverage Start Date Coverage End Date [facility] [employer] Others [address] [place] [address] [id number] Alice Santiago Self - patient is the [...]
== END 2025-02-03 09:45 | disposition home or self-care (01) ==
LOC: HO.HPODS 08:58
PROVIDERS: PCP Nurse Practitioner Family; Visit Provider Student in an Organized Health Care Education/Training Program
DX: E11.40 Type 2 diabetes mellitus with diabetic neuropathy, unspecified (principal); I73.9 Peripheral vascular disease, unspecified; L60.3 Nail dystrophy; L60.9 Nail disorder, unspecified; B35.1 Tinea unguium; M21.40 Flat foot [pes planus] (acquired), unspecified foot; M20.11 Hallux valgus (acquired), right foot; M20.12 Hallux valgus (acquired), left foot; L60.2 Onychogryphosis
CPT/HCPCS: 11721; 99204; G9226

== ENCOUNTER → 2025-02-03 10:16 | Outpatient (BNV) | payer OTHER, SELFPAY | PROVIDERS: PCP Nurse Practitioner Family; Visit Provider Radiology Diagnostic Radiology | DX: M20.11 Hallux valgus (acquired), right foot (principal); M20.12 Hallux valgus (acquired), left foot | CPT/HCPCS: 73630 ==

== ENCOUNTER 2025-02-10 13:41 | Outpatient (AMB) | payer OTHER, SELFPAY ==
[2025-02-10 13:47] VITALS: BMI 26.8
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
--- OUTSIDE RECORDS SUMMARY | 2025-02-10 16:51 | XMS_ITS | Patient Health Record ---
Author Organization [facility] Address [address] [place] [address] Care Team Providers Care Non Ferrous Material Handler Name Role Phone Leonard Alfred Primary Care Provider Sukumar Woo Unavailable [phone] Allergies Allergen (clinical drug ingredient) Drug/Non Drug [...] Status Risk Notes Problem Acquired hallux valgus (24755112) Hallux valgus (acquired), left foot (M20.12) Active confirmed Problem Acquired hallux valgus (51185476) Hallux valgus (acquired), right foot (M20.11) Active confirmed Problem Polyneuropathy due to type 2 diabetes mellitus (987934346) Type 2 diabetes mellitus with diabetic polyneuropathy (E11.42) Active confirmed Plan Of Treatment Pending Test Test Name Order Date X ray : Foot, left 3V 11/14/2021 X ray : Foot, right 3V 11/14/2021 [id number] SKIN LESIONS, OVER 4 11/15/19 22 Insurance Providers Payer Name Payer Address Payer Phone Subscriber Number Group Number Insured Name Patient Relationship to Insured Coverage Start Date Coverage End Date [facility] All Others [address] [place] [address] [id number] Alice Santiago Self - patient is the [...]
== END 2025-02-10 14:50 | disposition home or self-care (01) ==
LOC: HO.HVS 13:42
PROVIDERS: PCP Nurse Practitioner Family; Visit Provider Surgery Vascular Surgery
DX: I73.9 Peripheral vascular disease, unspecified (principal); M48.00 Spinal stenosis, site unspecified
CPT/HCPCS: 99214; G2211

== ENCOUNTER 2025-02-25 08:53 | Outpatient (REF) | payer OTHER, SELFPAY ==
--- NOTE | 2025-02-25 08:56 | PFT_ITS ---
Flows: FEV1: 80 % of predicted at 1.87 L FVC: 77 % of predicted at 2.25 L FEV1/FVC: 83 % Bronchodilator response: Absent Volumes: Total lung capacity: 75 % of predicted at 3.46 L Residual volume: 84 % of predicted at 1.25 L Slow vital capacity: 70 % of predicted at 2.21 L Expiratory reserve volume: 65 % of predicted at 0.51 L Diffusion capacity: Mildly decreased, corrects to normal after adjustment for alveolar ventilation. Impression: Mild restrictive ventilatory defect with no bronchodilator response. Decreased diffusion capacity suggests emphysema. MTDD
[2025-02-25 09:36] VITALS: PULSE 69
== END 2025-02-25 08:54 | disposition home or self-care (01) ==
LOC: HO.RESP 08:53
PROVIDERS: PCP Nurse Practitioner Family; Visit Provider Nurse Practitioner Family
DX: R06.02 Shortness of breath (principal); I25.10 Atherosclerotic heart disease of native coronary artery without angina pectoris; R06.00 Dyspnea, unspecified; F17.210 Nicotine dependence, cigarettes, uncomplicated
CPT/HCPCS: 94060; 94640; 94727; 94729

== ENCOUNTER → 2025-02-25 08:56 | Outpatient (BNV) | payer OTHER, SELFPAY | PROVIDERS: PCP Nurse Practitioner Family; Visit Provider Internal Medicine Pulmonary Disease | DX: J98.4 Other disorders of lung (principal) | CPT/HCPCS: 94060; 94727; 94729 ==

== ENCOUNTER 2025-03-03 13:16 | Outpatient (REF) | payer OTHER, SELFPAY ==
--- NOTE | ~2025-03-03 | CT_ITS ---
EXAMINATION: CT LUNG SCREENING HISTORY: F17.210 - Nicotine dependence, cigarettes, uncomplicated TECHNIQUE: Low dose axial images were obtained from the sternal notch to upper abdomen without IV contrast per standard departmental protocol. Sagittal and coronal reformatted images were also obtained and reviewed. One or more of the following techniques was used for dose reduction: Automated exposure control, adjustment of the mA and/or kV according to patient size, use of iterative reconstruction technique. DLP: 48 mGy-cm COMPARISON: Comparison is made with the prior examination dated 01/11/2024. FINDINGS: Lung nodules: Again seen are 2-3 mm nodules at the left lung apex (series 5, images 16 and 18). No new pulmonary nodules are identified. Emphysema: none Coronary Calcification: mild Aortic Arch Calcification: mild Potentially Significant Incidentals : none Additional Chest Findings: There is no pleural or pericardial effusion. No mediastinal or axillary lymphadenopathy is identified. Visualized upper abdomen: The visualized portions of the liver, spleen, and adrenals have an unremarkable unenhanced appearance. CT/CT lung screening IMPRESSION: No suspicious pulmonary nodules are identified. LUNG-RADS ASSESSMENT: Lung-RADS 2: Benign MANAGEMENT: Continue annual screening with LDCT in 12 months Category S: N/A Electronically signed by: Goran Valdez MD 03/03/2025 02:41 PM [facility]
--- OUTSIDE RECORDS SUMMARY | 2025-03-03 17:04 | XMS_ITS | Patient Health Record ---
Author Organization [facility] Address [address] [place] [address] Care Team Providers Care Vulcanizer Rubber Plate Name Role Phone Leonard Alfred Primary Care Provider Sukumar Woo Unavailable [phone] Allergies Allergen (clinical drug ingredient) Drug/Non Drug [...] Status Risk Notes Problem Acquired hallux valgus (67374833) Hallux valgus (acquired), left foot (M20.12) Active confirmed Problem Acquired hallux valgus (34018798) Hallux valgus (acquired), right foot (M20.11) Active confirmed Problem Polyneuropathy due to type 2 diabetes mellitus (168456086) Type 2 diabetes mellitus with diabetic polyneuropathy (E11.42) Active confirmed Plan Of Treatment Pending Test Test Name Order Date X ray : Foot, left 3V 11/14/2021 X ray : Foot, right 3V 11/14/2021 [id number] SKIN LESIONS, OVER 4 11/15/19 22 Insurance Providers Payer Name Payer Address Payer Phone Subscriber Number Group Number Insured Name Patient Relationship to Insured Coverage Start Date Coverage End Date [facility] All Others [address] [place] [address] [id number] Alice Santiago Self - patient is the [...]
== END 2025-03-03 13:17 | disposition home or self-care (01) ==
LOC: HO.CT 13:16
PROVIDERS: PCP Nurse Practitioner Family; Visit Provider Physician Assistant Medical
DX: Z12.2 Encounter for screening for malignant neoplasm of respiratory organs (principal); F17.210 Nicotine dependence, cigarettes, uncomplicated
CPT/HCPCS: 71271

== ENCOUNTER → 2025-03-03 13:17 | Outpatient (BNV) | payer OTHER, SELFPAY | PROVIDERS: PCP Nurse Practitioner Family; Visit Provider Radiology Diagnostic Radiology | DX: F17.210 Nicotine dependence, cigarettes, uncomplicated (principal) | CPT/HCPCS: 71271 ==

== ENCOUNTER 2025-03-04 14:40 | Outpatient (AMB) | payer OTHER, SELFPAY ==
[2025-03-04 14:44] VITALS: BP 146/65; PULSE 75; RESP 16; O2SAT 100; BMI 27.2
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
--- OUTSIDE RECORDS SUMMARY | 2025-03-04 17:24 | XMS_ITS | Patient Health Record ---
[facility] Organization [facility] Address [address] [place] [address] Care Team Providers Care Manufacturing Inspector Name Role Phone Leonard Alfred Primary Care Provider Sukumar Woo Unavailable [phone] Allergies Allergen (clinical drug ingredient) Drug/Non Drug [...] Status Risk Notes Problem Acquired hallux valgus (59458863) Hallux valgus (acquired), left foot (M20.12) Active confirmed Problem Acquired hallux valgus (77162942) Hallux valgus (acquired), right foot (M20.11) Active confirmed Problem Polyneuropathy due to type 2 diabetes mellitus (373950239) Type 2 diabetes mellitus with diabetic polyneuropathy (E11.42) Active confirmed Plan Of Treatment Pending Test Test Name Order Date X ray : Foot, left 3V 11/14/2021 X ray : Foot, right 3V 11/14/2021 [id number] SKIN LESIONS, OVER 4 11/15/19 22 Insurance Providers Payer Name Payer Address Payer Phone Subscriber Number Group Number Insured Name Patient Relationship to Insured Coverage Start Date Coverage End Date [facility] All Others [address] [place] [address] [id number] Alice Santiago Self - patient is the [...]
== END 2025-03-04 14:59 | disposition home or self-care (01) ==
LOC: HO.PMC 14:41
PROVIDERS: PCP Nurse Practitioner Family; Visit Provider Anesthesiology
DX: M47.816 Spondylosis without myelopathy or radiculopathy, lumbar region (principal); M48.062 Spinal stenosis, lumbar region with neurogenic claudication
CPT/HCPCS: 99203

== ENCOUNTER 2025-03-17 13:36 | Outpatient (AMB) | payer OTHER, SELFPAY ==
[2025-03-17 13:44] VITALS: BP 128/60; PULSE 58; BMI 27.7
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
== END 2025-03-17 14:05 | disposition home or self-care (01) ==
LOC: HO.HCS 13:37
PROVIDERS: PCP Nurse Practitioner Family; Visit Provider Nurse Practitioner Family
DX: I25.10 Atherosclerotic heart disease of native coronary artery without angina pectoris (principal); Z98.890 Other specified postprocedural states; I49.1 Atrial premature depolarization; I47.10 Supraventricular tachycardia, unspecified; E78.5 Hyperlipidemia, unspecified
CPT/HCPCS: 99214; G2211

== ENCOUNTER 2025-03-31 06:43 | Outpatient (REF) | payer OTHER, SELFPAY ==
--- OUTSIDE RECORDS SUMMARY | 2025-03-31 06:46 | XMS_ITS | Patient Health Record ---
[facility] Address [address] [place] [address] Care Team Providers Care Suction Plate Carrier Cleaner Name Role Phone Leonard Alfred Primary Care Provider Sukumar Woo Unavailable [phone] Allergies Allergen (clinical drug ingredient) Drug/Non Drug [...] Status Risk Notes Problem Acquired hallux valgus (68943223) Hallux valgus (acquired), left foot (M20.12) Active confirmed Problem Acquired hallux valgus (61543461) Hallux valgus (acquired), right foot (M20.11) Active confirmed Problem Polyneuropathy due to type 2 diabetes mellitus (752416222) Type 2 diabetes mellitus with diabetic polyneuropathy (E11.42) Active confirmed Plan Of Treatment Pending Test Test Name Order Date X ray : Foot, left 3V 11/14/2021 X ray : Foot, right 3V 11/14/2021 [id number] SKIN LESIONS, OVER 4 11/15/19 22 Insurance Providers Payer Name Payer Address Payer Phone Subscriber Number Group Number Insured Name Patient Relationship to Insured Coverage Start Date Coverage End Date [facility] All Others [address] [place] [address] [phone] [id number] Alice Santiago Self - patient is the [...]
[2025-03-31 11:06] LABS: Alanine Aminotransferase 24 U/L (0-31); Albumin Level 4.3 g/dL (3.5-5.0); Alkaline Phosphatase 87 U/L (39-117); Anion Gap 13 (12-20); Aspartate Amino Transferase 32 U/L (5-31); Blood Urea Nitrogen 11 mg/dL (9-16); Calcium 10.0 mg/dL (8.4-10.2); Carbon Dioxide 27 mmol/L (22-29); Chloride 104 mmol/L (96-108); Cholesterol 170 mg/dL (<200); Estimated Glomerular Filt Rate > 60; HDL Cholesterol 42 mg/dL (>40); Potassium 5.1 mmol/L (3.3-5.1); Sodium 139 mmol/L (135-145); Total Protein 6.9 g/dL (6.5-8.0); Triglycerides 207 mg/dL (<150)
== END 2025-03-31 06:44 | disposition home or self-care (01) ==
LOC: HO.HMGCLR 06:43
PROVIDERS: PCP Nurse Practitioner Family; Visit Provider Internal Medicine Endocrinology, Diabetes & Metabolism
DX: E11.65 Type 2 diabetes mellitus with hyperglycemia (principal)
CPT/HCPCS: 36415; 80053; 80061; 82043; 82570; 83036

== ENCOUNTER 2025-04-01 11:02 | Outpatient (AMB) | payer OTHER, SELFPAY ==
--- OUTSIDE RECORDS SUMMARY | 2025-04-01 11:09 | XMS_ITS | Patient Health Record ---
[facility] Address [address] [place] [address] Care Team Providers Care Global Sales Director Name Role Phone Leonard Alfred Primary Care Provider Sukumar Woo Unavailable [phone] Allergies Allergen (clinical drug ingredient) Drug/Non Drug [...] Status Risk Notes Problem Acquired hallux valgus (20354380) Hallux valgus (acquired), left foot (M20.12) Active confirmed Problem Acquired hallux valgus (57054527) Hallux valgus (acquired), right foot (M20.11) Active confirmed Problem Polyneuropathy due to type 2 diabetes mellitus (162480779) Type 2 diabetes mellitus with diabetic polyneuropathy (E11.42) Active confirmed Plan Of Treatment Pending Test Test Name Order Date X ray : Foot, left 3V 11/14/2021 X ray : Foot, right 3V 11/14/2021 [id number] SKIN LESIONS, OVER 4 11/15/19 22 Insurance Providers Payer Name Payer Address Payer Phone Subscriber Number Group Number Insured Name Patient Relationship to Insured Coverage Start Date Coverage End Date [facility] All Others [address] [place] [address] [id number] Alice Santiago Self - patient is the [...]
[2025-04-01 11:22] VITALS: BP 118/56; PULSE 64; RESP 16; O2SAT 99; BMI 28.2
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
== END 2025-04-01 12:09 | disposition home or self-care (01) ==
LOC: HO.HMCC 11:03
PROVIDERS: PCP Nurse Practitioner Family; Visit Provider Nurse Practitioner Family
DX: E78.5 Hyperlipidemia, unspecified (principal); I25.10 Atherosclerotic heart disease of native coronary artery without angina pectoris

== ENCOUNTER → 2025-04-01 11:02 | Outpatient (BNVA) | payer OTHER, SELFPAY | PROVIDERS: PCP Nurse Practitioner Family; Visit Provider Nurse Practitioner Family | DX: I25.10 Atherosclerotic heart disease of native coronary artery without angina pectoris (principal); E78.5 Hyperlipidemia, unspecified | CPT/HCPCS: 96127 ==